=== PATIENT | female | born 1935 | race Caucasian/White ===

== ENCOUNTER 2016-11-01 18:58 | Emergency (ER) | payer OTHER ==
[~2016-11-01] VITALS: Ht 160 cm; Wt 87.0 kg
[~2016-11-01 18:58] MED LIST: ATOR80TA PO; CMD5 PO; FSM70 PO; HYDR25TA4 PO; LISI5TAB3 PO; MECL25TA2 PO; POTA-327 PO; TEMA15CA4 PO; TMXUNK PO; WARF5TAB90 PO
[2016-11-01 19:00] VITALS: TEMP 36.6; Ht 160 cm; Wt 87.0 kg
[2016-11-01] MEDS ORDERED: SIMV40TA2 PO (19:40)
[2016-11-01] MEDS ORDERED: WARF5TAB90 PO ×2 (19:40→19:57)
[2016-11-01] MEDS ORDERED: LISI-789 PO (19:40)
[2016-11-01] MEDS ORDERED: DONE10TA12 PO (19:40)
[2016-11-01] MEDS ORDERED: POTA10CA28 PO (19:40)
[2016-11-01] MEDS ORDERED: HYDR25TA5 PO (19:40)
[2016-11-01] MEDS ORDERED: MECLIZINE HCL 25 MG TAB PO STA (20:07)
[2016-11-01] MEDS ORDERED: SODIUM CHLORIDE 0.9% 500ML 500 ML IV STA (20:07)
[2016-11-01 20:19] VITALS: O2SAT 96
[2016-11-01 20:35] LABS: BASO % 0.6 %; BASO ABS # 0.03 K/uL (0-0.2); COMPLETE YES; EOS % 2.6 %; HEMATOCRIT 46.4 % (37-47); LYMPH ABS # 1.09 K/uL (1.2-3.4); MEAN CORPUSCULAR HEMOGLOBIN 30.7 pg (25-34); MEAN PLATELET VOLUME 9.8 fL (7.4-10.4); MONO % 6.3 %; NEUT % 70.5 %; PLATELET COUNT 206 K/uL (130-400); RED BLOOD COUNT 4.99 M/uL (4.2-5.4); WHITE BLOOD COUNT 5.44 K/uL (4.8-10.8)
--- NOTE | 2016-11-01 21:01 | DIAGNOSTIC IMAGING REPORT ---
CHEST ONE VIEW PORTABLE CLINICAL HISTORY: Pt c/o dizziness mental status change COMPARISON STUDY: No previous studies for comparison. FINDINGS: Moderate cardiomegaly. Mild prominence of the pulmonary vasculature. Mild elevation right hemidiaphragm. No focal infiltrate. Degenerative changes of left and to lesser extent right shoulder. IMPRESSION: Cardia megaly. Mild venous congestion. Electronically signed by: Braden Michele M.D. 11/01/2016 9:00 PM Dictated Date/Time: 11/01/2016 8:59 PM
[2016-11-01 21:03] LABS: URINE APPEARANCE CLEAR (CLEAR); URINE BILIRUBIN NEG (NEG); URINE COLOR YELLOW; URINE NITRITE NEG (NEG); URINE SPECIFIC GRAVITY 1.021 (1.000-1.030); UROBILINOGEN NEG (NEG)
[2016-11-01 21:08] LABS: ALKALINE PHOSPHATASE 77 U/L (45-117); ALT/SGPT 21 U/L (12-78); BLOOD UREA NITROGEN 26 mg/dl (7-18); BUN/CREATININE RATIO 18.5 (10-20); CALCIUM 8.9 mg/dl (8.5-10.1); CARBON DIOXIDE 29 mmol/L (21-32); CHLORIDE 107 mmol/L (98-107); GLUCOSE 86 mg/dl (70-99); SODIUM 144 mmol/L (136-145)
--- NOTE | 2016-11-01 21:09 | DIAGNOSTIC IMAGING REPORT ---
HEAD CT NONCONTRAST CT DOSE: 537.48 mGy.cm HISTORY: Mental status change Pt c/o dizziness TECHNIQUE: Multiaxial CT images of the head were performed without the use of intravenous contrast. Comparison: None. Findings: The paranasal sinuses and mastoid air cells are clear. The calvarium and skull base are intact. The ventricles and sulci are within normal limits. There is no mass, hematoma, midline shift, or acute infarct. Mild age-related chronic small vessel change as well as atrophy. Impression: No acute intracranial abnormality. Age-related change. Electronically signed by: Braden Michele M.D. 11/01/2016 9:07 PM Dictated Date/Time: 11/01/2016 9:06 PM
[2016-11-01 21:20] LABS: MANUAL MICROSCOPIC REQUIRED? NO; REVIEW REQ? NO
[2016-11-01] MEDS ORDERED: MECL1TAB42 PO (21:38)
[2016-11-01 21:57] LABS: INR 2.4 (0.9-1.1); PROTHROMBIN TIME (PATIENT) 26.9 SECONDS (9.0-12.0)
[2016-11-01 22:17] VITALS: BP 132/72; PULSE 93; O2SAT 96
--- NOTE | 2016-11-01 23:12 | EMERGENCY ROOM VISIT NOTE ---
History Report prepared by Biis: Sugar Hoffman Under the Supervision of: Dr. Heath Massey M.D. First contact with patient: 20:01 Chief Complaint: REFERRED BY DOCTOR Stated Complaint: DIZZINESS History of Present Illness The patient is an 81 year old female who presents to the Emergency Room with complaints of persistent dizziness starting a couple days ago. The dizziness was constant at first. It has resolved after laying in emergency room bed. The dizziness worsens when she moves around. She is not dizzy when moving her head side to side. She denies any abdominal pain. Source of History: patient Onset: couple days ago Position: other (global) Quality: other (dizziness) Timing: other (persistent) Modifying Factors (Worsening): movement Modifying Factors (Relieving): rest Associated Symptoms: No abdominal pain Review of Systems See HPI for pertinent positives & negatives. A total of 10 systems reviewed and were otherwise negative. Past Medical & Surgical Medical Problems: (1) Hypertension Surgical Problems: (1) S/P cholecystectomy Family History Diabetes mellitus Gallbladder disease Heart disease Hypertension Social History Smoking Status: Former Smoker Marital Status: Occupation Status: retired Current/Historical Medications Scheduled Donepezil Hydrochloride (Aricept), 10 MG PO HS Hydrochlorothiazide (Hydrochlorothiazide), 25 MG PO DAILY Lisinopril (Zestril), 2.5 MG PO DAILY Potassium Chloride (Micro-K Ext Rel), 10 MEQ PO BID Simvastatin (Zocor), 40 MG PO QPM Warfarin Sodium (Coumadin), 5 MG PO 4XWK Warfarin Sodium (Coumadin), 2.5 MG PO 3XWK Scheduled PRN Meclizine Hcl (Meclizine Hcl), 1 TAB PO TID PRN for Dizziness or Vertigo Allergies Coded Allergies: Aspirin (Verified Allergy, Mild, sick per pt, 03/26/12) Physical Exam Vital Signs Date Time Temp Pulse Resp B/P (MAP) Pulse Ox O2 Delivery O2 Flow Rate FiO2 11/01/16 22:17 93 20 132/72 96 11/01/16 20:53 79 21 121/74 96 Room Air 11/01/16 20:19 96 Room Air 11/01/16 20:19 96 Room Air 11/01/16 19:42 73 21 127/58 96 79 121/74 91 129/76 11/01/16 19:00 36.6 101 140/84 95 Room Air Physical Exam GENERAL: Patient is a healthy-appearing well-nourished HEAD: Normocephalic atraumatic EYES: Ocular movements intact pupils equal and react to light OROPHARYNX mucous membranes are moist no exudates present no erythema or edema present NECK: Supple no nuchal rigidity CHEST: Good equal expansion LUNGS: Clear and equal to auscultation CARDIAC: Normal S1 and S2 ABDOMEN: Soft nontender no guarding BACK: No CVA tenderness EXTREMITIES: No pain upon palpation normal muscle strength in all groups no clubbing cyanosis or edema NEURO: Patient is following commands is answering questions appropriately. Alert and oriented x3 Cranial Nerves 2-12 grossly intact Medical Decision & Procedures ER Provider Diagnostic Interpretation: X-ray results as stated below per interpretation by me and the radiologist. Radiology results as stated below per my review and radiologist interpretation: CHEST ONE VIEW PORTABLE CLINICAL HISTORY: Pt c/o dizziness mental status change COMPARISON STUDY: No previous studies for comparison. FINDINGS: Moderate cardiomegaly. Mild prominence of the pulmonary vasculature. Mild elevation right hemidiaphragm. No focal infiltrate. Degenerative changes of left and to lesser extent right shoulder. IMPRESSION: Cardia megaly. Mild venous congestion. Electronically signed by: Braden Michele M.D. 11/01/2016 9:00 PM Dictated Date/Time: 11/01/2016 8:[address] CT DOSE: 537.48 mGy.cm HISTORY: Mental status change Pt c/o dizziness TECHNIQUE: Multiaxial CT images of the head were performed without the use of intravenous contrast. Comparison: None. Findings: The paranasal sinuses and mastoid air cells are clear. The calvarium and skull base are intact. The ventricles and sulci are within normal limits. There is no mass, hematoma, midline shift, or acute infarct. Mild age-related chronic small vessel change as well as atrophy. Impression: No acute intracranial abnormality. Age-related change. Electronically signed by: Braden Michele M.D. 11/01/2016 9:07 PM Dictated Date/Time: 11/01/2016 9:06 PM Laboratory Results 11/01/16 20:25 Red Blood Count 4.99, Mean Corpuscular Volume 93.0, Mean Corpuscular Hemoglobin 30.7, Mean Corpuscular Hemoglobin Concent 33.0, Mean Platelet Volume 9.8, Neutrophils (%) (Auto) 70.5, Lymphocytes (%) (Auto) 20.0, Monocytes (%) (Auto) 6.3, Eosinophils (%) (Auto) 2.6, Basophils (%) (Auto) 0.6, Neutrophils # (Auto) 3.84, Lymphocytes # (Auto) 1.09, Monocytes # (Auto) 0.34, Eosinophils # (Auto) 0.14, Basophils # (Auto) 0.03 11/01/16 20:25 Test 11/01/16 20:23 11/01/16 20:25 11/01/16 20:49 Bedside Glucose 82 mg/dl (70-90) White Blood Count 5.44 K/uL (4.8-10.8) Red Blood Count 4.99 M/uL (4.2-5.4) Hemoglobin 15.3 g/dL (12.0-16.0) Hematocrit 46.4 % (37-47) Mean Corpuscular Volume 93.0 fL (80-100) Mean Corpuscular Hemoglobin 30.7 pg (25-34) Mean Corpuscular Hemoglobin Concent 33.0 g/dl (32-36) Platelet Count 206 K/uL (130-400) Mean Platelet Volume 9.8 fL (7.4-10.4) Neutrophils (%) (Auto) 70.5 % Lymphocytes (%) (Auto) 20.0 % Monocytes (%) (Auto) 6.3 % Eosinophils (%) (Auto) 2.6 % Basophils (%) (Auto) 0.6 % Neutrophils # (Auto) 3.84 K/uL (1.4-6.5) Lymphocytes # (Auto) 1.09 K/uL (1.2-3.4) Monocytes # (Auto) 0.34 K/uL (0.11-0.59) Eosinophils # (Auto) 0.14 K/uL (0-0.5) Basophils # (Auto) 0.03 K/uL (0-0.2) RDW Standard Deviation 47.0 fL (36.4-46.3) RDW Coefficient of Variation 13.7 % (11.5-14.5) Immature Granulocyte % (Auto) 0.0 % Immature Granulocyte # (Auto) 0.00 K/uL (0.00-0.02) Prothrombin Time 26.9 SECONDS (9.0-12.0) Prothromb Time International Ratio 2.4 (0.9-1.1) Anion Gap 8.0 mmol/L (3-11) Est Creatinine Clear Calc Drug Dose 32.4 ml/min Estimated GFR () 40.5 Estimated GFR (Non- 34.9 BUN/Creatinine Ratio 18.5 (10-20) Calcium Level 8.9 mg/dl (8.5-10.1) Total Bilirubin 0.6 mg/dl (0.2-1) Direct Bilirubin mg/dl (0-0.2) Aspartate Amino Transf (AST/SGOT) U/L (15-37) Alanine Aminotransferase (ALT/SGPT) 21 U/L (12-78) Alkaline Phosphatase 77 U/L (45-117) Total Creatine Kinase U/L (26-192) Creatine Kinase MB 1.3 ng/ml (0.5-3.6) Creatine Kinase MB Ratio (0-3.0) Troponin I < 0.015 ng/ml (0-0.045) Total Protein 7.1 gm/dl (6.4-8.2) Albumin 3.8 gm/dl (3.4-5.0) Thyroid Stimulating Hormone (TSH) 2.010 uIu/ml (0.300-4.500) Urine Color YELLOW Urine Appearance CLEAR (CLEAR) Urine pH 7.0 (4.5-7.5) Urine Specific [place] 1.021 (1.000-1.030) Urine Protein NEG (NEG) Urine Glucose (UA) NEG (NEG) Urine Ketones NEG (NEG) Urine Occult Blood NEG (NEG) Urine Nitrite NEG (NEG) Urine Bilirubin NEG (NEG) Urine Urobilinogen NEG (NEG) Urine Leukocyte Esterase NEG (NEG) Labs reviewed by ED physician. Medications Administered Medications (Trade) Dose Ordered Sig/Camacho Route Start Time Stop Time Status Last Admin Dose Admin Meclizine HCl (Antivert Tab) 25 mg NOW STAT PO 11/01/16 20:07 11/01/16 20:09 DC 11/01/16 20:44 25 MG Sodium Chloride 500 ml @ 999 mls/hr Q31M STAT IV 11/01/16 20:07 11/01/16 20:37 DC 11/01/16 20:45 999 MLS/HR ECG Indication: other (dizziness) Rate (beats per minute): 76 Rhythm: atrial fibrillation Findings: no acute ischemic change, other (QTC 432) Comparison ECG Date: 03-Jun-2007 Change: A fib is new. ED Course 2003: Past medical records reviewed. The patient was evaluated in room C5. A complete history and physical examination was performed. 2007: NSS 500 ml @ 999 mls/hr IV, Meclizine HCl 25 mg PO. 2144: Upon reexamination the patient is resting comfortably. I discussed results and treatment plan with the patient. She verbalizes agreement and understanding. The patient is ready for discharge. Medical Decision Differential diagnosis: Etiologies such as metabolic, infection, hypo/hyperglycemia, electrolyte abnormalities, cardiac sources, intracerebral event, toxicologic, neurologic, as well as others were entertained. Medication Reconciliation: I attest that I have personally reviewed the patient' s current medication list. Blood Pressure Screening: Patient was found to have normal blood pressure on screening and does not require follow up. This is an 81-year-old female who presents emergency department complaining of dizziness. The patient denies having dizziness now. She was given meclizine as well as a normal saline bolus in the emergency department. I do believe she is slightly dehydrated and her blood sugar is also low. Patient reports that she has not eaten today however is feeling much better. She was fed here in the emergency department and I feel is well enough to be discharged home. The patient was ambulated by nursing staff and also felt well she is requesting to be discharged. Patient will follow-up with her primary care physician. Impression Primary Impression: Dehydration Additional Impressions: Dizziness Hypoglycemia Scribe Attestation The scribe's documentation has been prepared under my direction and personally reviewed by me in its entirety. I confirm that the note above accurately reflects all work, treatment, procedures, and medical decision making performed by me. Departure Information Dispostion Home / Self-Care Prescriptions Meclizine Hcl (MECLIZINE HCL) 25 Mg Tab 1 TAB PO TID Y for Dizziness or Vertigo for 10 Days, #30 TAB Prov: Heath Massey MD 11/01/16 Referrals Mina Sanchez M.D. (PCP) Christina Welsh M.D. Forms HOME CARE DOCUMENTATION FORM, IMPORTANT VISIT INFORMATION, WORK / SCHOOL INSTRUCTIONS Patient Instructions ED Dehydration, ED Dizziness [facility] Hypertension Control, My [facility] Additional Instructions Increase fluid intake next 48 [address] Follow up [address] Welsh's office for continued dizziness You have been examined and treated today on an emergency basis only. This is not a substitute for, or an effort to provide, complete comprehensive medical care. It is impossible to recognize and treat all injuries or illnesses in a single emergency department visit. It is therefore important that you follow up closely with Dr Sanchez. Call as soon as possible for an appointment. Thank you for your time and consideration. I look forward to speaking with you again soon. Please don't hesitate to call us if you have any questions. Problem Qualifiers
== END 2016-11-01 22:19 | disposition home or self-care (01) ==
LOC: C.EDB 18:59 → C.EDC 22:19
DX: E86.0 Dehydration (principal); R42 Dizziness and giddiness; E16.2 Hypoglycemia, unspecified; I48.91 Unspecified atrial fibrillation; I10 Essential (primary) hypertension; Z79.01 Long term (current) use of anticoagulants; Z79.899 Other long term (current) drug therapy; Z82.49 Family history of ischemic heart disease and other diseases of the circulatory system; Z83.3 Family history of diabetes mellitus; Z83.79 Family history of other diseases of the digestive system; F17.200 Nicotine dependence, unspecified, uncomplicated

== ENCOUNTER 2023-03-16 21:51 | Inpatient (IN) ==
--- NOTE | 2023-03-16 22:14 | Emergency Department Note ---
Impression & Plan Acute UTI (urinary tract infection), Generalized weakness, Acute confusion ED Provider Note HISTORY OF PRESENT ILLNESS: Patient is an 86-year-old female presenting with reported worsening confusion. History was obtained via EMS, as patient is very demented. EMS was called out for the patient's worsening confusion. She reportedly has baseline dementia and family had stated to EMS that the patient is at her baseline mental status, but has been having intermittent episodes of increasing agitation. She reportedly recently treated for a urinary tract infection.. On arrival to the ER, the patient has no complaints. She is unsure why she is here. Family provides history once they arrived at bedside. Reports that the patient has had generalized weakness in the last 24 hours. She has been slightly more confused today. Reports that she is normally ambulatory with some assist, but today has been unable to get up secondary to lower extremity weakness. ROS: as above PHYSICAL EXAM: Constitutional: Patient appears in no acute distress. HENT: Head: Normocephalic and atraumatic. Eyes: EOMI, PERRL Mouth/Throat: Mucous membranes moist. Neck: Trachea midline. Neck supple. Cardiovascular: RRR, No murmurs, rubs or gallops. Intact distal pulses. Pulmonary/Chest: No respiratory distress. Breath sounds clear and equal bilaterally. No wheezes or rales. Patient has a very hard and nontender left breast. The nipple is retracted. Abdominal: Abdomen soft, no tenderness, rebound or guarding. Musculoskeletal: No edema, tenderness or deformity noted. Skin: Warm and dry. No rash, erythema, pallor or cyanosis Psychiatric: Appropriate mood and affect for situation. Neurological: Alert but only oriented to self and place. CN II-XII grossly intact, moving all extremities equally and fully. MDM: - Vitals signs stable. - History obtained via EMS, given patient's dementia. Patient presents with worsening confusion and weakness. Patient reportedly has been more confused from her baseline today. She recently was treated for a urinary tract infecti on. Family reports that the patient has had lower extremity weakness today has been unable to get up and get around like her normal self. No reported fevers. - Chronic conditions affecting care: dementia - Differential diagnoses include, but are not limited to: UTI; pneumonia; electrolyte abnormality - Order placed for continuous cardiac monitoring. At this time, monitor showed rate of 75 bpm with normal sinus rhythm, per my interpretation. - External medical records reviewed. - Laboratory workup interpreted by myself showed slight leukopenia (WBC 4.05); hyponatremia (Na 132); elevated creatinine (Cr 1.3) - UA obtained via straight cath positive for infection - Biofire negative - Patient given 2g IV rocephin. - Discussion was had with protective services social worker about patient's case and need for ad mission - Hospitalist consulted for admission - [facility] ASSESSMENT AND PLAN: Diagnosis: Generalized weakness; urinary tract infection; confusion Plan: Admit Past Med/Surg History Social History Smoking Status: Unknown if ever smoked Preferred Language: Luxembourgish Feels Safe at Home: Yes Allergies Allergies Allergy/AdvReac Type Severity Reaction Status Date / Time acetaminophen AdvReac Unknown Verified 03/17/23 01:24 aspirin AdvReac Unknown Verified 03/17/23 01:24 Home Meds Home Medications Medication Instructions Recorded Confirmed donepezil 10 mg tablet 10 mg PO HS 03/17/23 03/17/23 lisinopril 2.5 mg tablet 2.5 mg PO DAILY 03/17/23 03/17/23 potassium chloride 10 mEq 10 meq PO BID 03/17/23 03/17/23 capsule,extended release simvastatin 40 mg tablet 40 mg PO HS 03/17/23 03/17/23 warfarin 2.5 mg tablet 2.5 mg PO DAILY 03/17/23 03/17/23 Results & Data (ED) Vital Signs Vital Signs - 24 hr 03/16/23 22:15 03/16/23 22:14 03/16/23 23:00 Temperature 36.4 C L Temperature Source Oral Pulse Rate 80 85 78 Respiratory Rate 20 32 H Blood Pressure 128/86 112/64 Blood Pressure Mean 100 87 Blood Pressure Position Lying Pulse Oximetry 94 93 Oxygen Delivery Method Room Air Room Air Sepsis Recent Fever Within 48 Hours No Sepsis New/Unexplained Change in Mental Status N/A Sepsis Action Taken by Nursing No Action Required 03/16/23 23:31 03/17/23 00:30 Temperature Temperature Source Pulse Rate 84 74 Respiratory Rate 31 H 38 H Blood Pressure 133/81 108/77 Blood Pressure Mean 103 82 Blood Pressure Position Pulse Oximetry 94 95 Oxygen Delivery Method Room Air Room Air Sepsis Recent Fever Within 48 Hours Sepsis New/Unexplained Change in Mental Status Sepsis Action Taken by Nursing Laboratory Data 03/16/23 22:25 03/16/23 22:25 Lab Results 03/16/23 03/16/23 03/16/23 Range/Units 22:25 22:25 23:15 WBC 4.05 L (4.8-10.8) K/ul RBC 4.63 (4.20-5.40) M/uL Hgb 13.9 (12.0-16.0) g/dl Hct 42.3 (37.0-47.0) % MCV 91.4 (80.0-100.0) fL MCH 30.0 (25.0-34.0) pg MCHC 32.9 (32.0-36.0) g/dL RDW Std Deviation 47.4 H (36.4-46.3) fL RDW Coeff of Alex 14.1 (11.5-14.5) % Plt Count 167 (130-400) K/uL MPV 9.8 (9.4-12.4) fL Immature Gran % (Auto) 0.0 % Neut % (Auto) 85.2 % Lymph % (Auto) 8.1 % [place] % (Auto) 3.5 % Eos % (Auto) 3.0 % Baso % (Auto) 0.2 % Neut # (Auto) 3.45 (1.40-6.50) K/uL Lymph # (Auto) 0.33 L (1.20-3.40) K/uL [place] # (Auto) 0.14 (0.11-0.59) K/uL Eos # (Auto) 0.12 (0.00-0.50) K/uL Baso # (Auto) 0.01 (0.00-0.20) K/uL Immature Gran # (Auto) 0.00 L (0.01-0.20) K/uL Sodium 132 L (136-145) mmol/L Potassium 4.6 (3.5-5.1) mmol/L Chloride 105 (98-107) mmol/L Carbon Dioxide 22 (21-32) mmol/L Anion Gap 5 (3-11) BUN 24 H (6-23) mg/dl Creatinine 1.30 H (0.6-1.2) mg/dl Est Cr Clr Drug Dosing Not Reportable Est GFR ( Amer) 42.4 ml/min Est GFR (Non-Af Amer) 36.6 ml/min BUN/Creatinine Ratio 18.5 (10-20) Glucose 108 H (70-99(Fasting)) mg/dl Calcium 8.8 (8.6-10.3) mg/dl Total Bilirubin 0.8 (0.2-1.0) mg/dl AST 16 (13-39) U/L ALT 5 L (7-52) U/L Alkaline Phosphatase 63 (34-104) U/L Total Protein 6.3 (6.0-8.3) gm/dl Albumin 3.7 (3.4-5.0) gm/dl Globulin 2.6 (2.5-4.0) gm/dl Albumin/Globulin Ratio 1.4 (0.9-2) Urine Color Urine Appearance (Clear) Urine pH (4.5-7.5) Ur Specific [place] (1.000-1.030) Urine Protein (Negative) Urine Glucose (UA) (Negative) Urine Ketones (Negative) Urine Blood (Negative) Urine Nitrite (Negative) Urine Bilirubin (Negative) Urine Urobilinogen (Negative) Ur Leukocyte Esterase (Negative) Urine WBC (Auto) (0-5) /hpf Urine RBC (Auto) (0-4) /hpf U Hyaline Cast (Auto) (0-5) /lpf U Epithel Cells (Auto) (0-5) /lpf Urine Bacteria (Auto) (Negative) Ur Renal Epithelial Cell (0-5) /lpf Adenovirus (PCR) Not Detected (NotDetected) B. pertussis DNA (PCR) Not Detected (NotDetected) B.parapertussis DNA PCR Not Detected (NotDetected) C. pneumoniae DNA (PCR) Not Detected (NotDetected) Coronavirus OC43 (PCR) Not Detected (NotDetected) Coronavirus HKU1 (PCR) Not Detected (NotDetected) Coronavirus 229E (PCR) Not Detected (NotDetected) SARS-CoV-2 (PCR) Not Detected (NotDetected) Coronavirus NL63 (PCR) Not Detected (NotDetected) Human Metapneumovir PCR Not Detected (NotDetected) Influenza Type A (PCR) Not Detected (NotDetected) Influenza Type B (PCR) Not Detected (NotDetected) M. pneumoniae (PCR) Not Detected (NotDetected) Parainfluenza 1 (PCR) Not Detected (NotDetected) Parainfluenza 2 (PCR) Not Detected (NotDetected) Parainfluenza 3 (PCR) Not Detected (NotDetected) Parainfluenza 4 (PCR) Not Detected (NotDetected) RSV (PCR) Not Detected (NotDetected) Entero/Rhino (PCR) Not Detected (NotDetected) 03/17/23 Range/Units 00:08 WBC (4.8-10.8) K/ul RBC (4.20-5.40) M/uL Hgb (12.0-16.0) g/dl Hct (37.0-47.0) % MCV (80.0-100.0) fL MCH (25.0-34.0) pg MCHC (32.0-36.0) g/dL RDW Std Deviation (36.4-46.3) fL RDW Coeff of Alex (11.5-14.5) % Plt Count (130-400) K/uL MPV (9.4-12.4) fL Immature Gran % (Auto) % Neut % (Auto) % Lymph % (Auto) % [place] % (Auto) % Eos % (Auto) % Baso % (Auto) % Neut # (Auto) (1.40-6.50) K/uL Lymph # (Auto) (1.20-3.40) K/uL [place] # (Auto) (0.11-0.59) K/uL Eos # (Auto) (0.00-0.50) K/uL Baso # (Auto) (0.00-0.20) K/uL Immature Gran # (Auto) (0.01-0.20) K/uL Sodium (136-145) mmol/L Potassium (3.5-5.1) mmol/L Chloride (98-107) mmol/L Carbon Dioxide (21-32) mmol/L Anion Gap (3-11) BUN (6-23) mg/dl Creatinine (0.6-1.2) mg/dl Est Cr Clr Drug Dosing Est GFR ( Amer) ml/min Est GFR (Non-Af Amer) ml/min BUN/Creatinine Ratio (10-20) Glucose (70-99(Fasting)) mg/dl Calcium (8.6-10.3) mg/dl Total Bilirubin (0.2-1.0) mg/dl AST (13-39) U/L ALT (7-52) U/L Alkaline Phosphatase (34-104) U/L Total Protein (6.0-8.3) gm/dl Albumin (3.4-5.0) gm/dl Globulin (2.5-4.0) gm/dl Albumin/Globulin Ratio (0.9-2) Urine Color Dark Yellow Urine Appearance Cloudy A (Clear) Urine pH 5.0 (4.5-7.5) Ur Specific [place] 1.025 (1.000-1.030) Urine Protein 3+ H (Negative) Urine Glucose (UA) Negative (Negative) Urine Ketones Trace H (Negative) Urine Blood Trace H (Negative) Urine Nitrite Negative (Negative) Urine Bilirubin 1+ H (Negative) Urine Urobilinogen Negative (Negative) Ur Leukocyte Esterase 1+ H (Negative) Urine WBC (Auto) >30 H (0-5) /hpf Urine RBC (Auto) 0-4 (0-4) /hpf U Hyaline Cast (Auto) >30 H (0-5) /lpf U Epithel Cells (Auto) >30 H (0-5) /lpf Urine Bacteria (Auto) 1+ H (Negative) Ur Renal Epithelial Cell 5-10 H (0-5) /lpf Adenovirus (PCR) (NotDetected) B. pertussis DNA (PCR) (NotDetected) B.parapertussis DNA PCR (NotDetected) C. pneumoniae DNA (PCR) (NotDetected) Coronavirus OC43 (PCR) (NotDetected) Coronavirus HKU1 (PCR) (NotDetected) Coronavirus 229E (PCR) (NotDetected) SARS-CoV-2 (PCR) (NotDetected) Coronavirus NL63 (PCR) (NotDetected) Human Metapneumovir PCR (NotDetected) Influenza Type A (PCR) (NotDetected) Influenza Type B (PCR) (NotDetected) M. pneumoniae (PCR) (NotDetected) Parainfluenza 1 (PCR) (NotDetected) Parainfluenza 2 (PCR) (NotDetected) Parainfluenza 3 (PCR) (NotDetected) Parainfluenza 4 (PCR) (NotDetected) RSV (PCR) (NotDetected) Entero/Rhino (PCR) (NotDetected) Administered Medications Discontinued Medications Ceftriaxone Sodium (Rocephin) 2,000 mg in 50 mls @ 100 mls/hr IV NOW STA Stop: 03/17/23 01:27 Last Admin: 03/17/23 01:10 Dose: 100 mls/hr Documented By: DML Discharge Plan Visit Data Chief Complaint: Urinary Symptoms Stated Complaint: UTI ED Provider: Maureen Stanford Discharge Problem: Acute UTI (urinary tract infection), Generalized weakness, Acute confusion Forms Stand Alone Forms: [facility] Prescriptions Prescriptions: No Action potassium chloride 10 mEq Capsule, Extended Release 10 meq PO BID donepezil 10 mg Tablet 10 mg PO HS warfarin 2.5 mg Tablet 2.5 mg PO DAILY simvastatin 40 mg Tablet 40 mg PO HS lisinopril 2.5 mg Tablet 2.5 mg PO DAILY Referrals Referrals: PCP,NO [Primary Care Provider] -
[2023-03-16 22:48] LABS: Basophils # (auto) 0.01 K/uL (0.00-0.20); Basophils % (auto) 0.2 %; Eosinophils # (auto) 0.12 K/uL (0.00-0.50); Hematocrit (blood only) 42.3 % (37.0-47.0); Hemoglobin 13.9 g/dl (12.0-16.0); Lymphocytes # (auto) 0.33 K/uL (1.20-3.40); Lymphocytes % (auto) 8.1 %; Mean Corpuscular Hgb Conc 32.9 g/dL (32.0-36.0); Mean Corpuscular Volume 91.4 fL (80.0-100.0); Mean Platelet Volume 9.8 fL (9.4-12.4); Monocytes # (auto) 0.14 K/uL (0.11-0.59); Monocytes % (auto) 3.5 %; Neutrophils # (auto) 3.45 K/uL (1.40-6.50); Neutrophils % (auto) 85.2 %; Platelet Count 167 K/uL (130-400); RDW Coefficient of Variation 14.1 % (11.5-14.5); RDW Standard Deviation 47.4 fL (36.4-46.3); Red Blood Count 4.63 M/uL (4.20-5.40); White Blood Count 4.05 K/ul (4.8-10.8)
[2023-03-16 23:00] LABS: Alanine Aminotransferase 5 U/L (7-52); Albumin Globulin Ratio 1.4 (0.9-2); Albumin Level 3.7 gm/dl (3.4-5.0); Alkaline Phosphatase 63 U/L (34-104); Anion Gap 5 (3-11); Aspartate Aminotransferase 16 U/L (13-39); BUN Creatinine Ratio 18.5 (10-20); Bilirubin,Total 0.8 mg/dl (0.2-1.0); Blood Urea Nitrogen 24 mg/dl (6-23); Calcium 8.8 mg/dl (8.6-10.3); Carbon Dioxide 22 mmol/L (21-32); Chloride 105 mmol/L (98-107); Est GFR (African American) 42.4 ml/min; Est GFR (Non-African American) 36.6 ml/min; Globulin 2.6 gm/dl (2.5-4.0); Glucose 108 mg/dl (70-99(Fasting)); Potassium 4.6 mmol/L (3.5-5.1); Sodium 132 mmol/L (136-145); Total Protein 6.3 gm/dl (6.0-8.3)
[2023-03-17 00:13] LABS: Adenovirus PCR Not Detected (NotDetected); Bordetella parapertussis PCR Not Detected (NotDetected); Bordetella pertussis PCR Not Detected (NotDetected); Chlamydia pneumoniae PCR Not Detected (NotDetected); Coronavirus 229E PCR Not Detected (NotDetected); Coronavirus CoV-2 (COVID19)PCR Not Detected (NotDetected); Coronavirus HKU1 PCR Not Detected (NotDetected); Coronavirus NL63 PCR Not Detected (NotDetected); Coronavirus OC43PCR Not Detected (NotDetected); Human Metapneumovirus PCR Not Detected (NotDetected); Influenza A PCR Not Detected (NotDetected); Influenza B PCR Not Detected (NotDetected); Mycoplasma pneumoniae PCR Not Detected (NotDetected); Parainfluenza Virus 1 PCR Not Detected (NotDetected); Parainfluenza Virus 2 PCR Not Detected (NotDetected); Parainfluenza Virus 3 PCR Not Detected (NotDetected); Parainfluenza Virus 4 PCR Not Detected (NotDetected); Respiratory Syncytial VirusPCR Not Detected (NotDetected); Rhinovirus/Enterovirus PCR Not Detected (NotDetected)
[2023-03-17 00:33] LABS: Appearance Urine Cloudy (Clear); Blood Urine Trace (Negative); Color Urine Dark Yellow; Epithelial Cell Urine Auto >30 /lpf (0-5); Glucose Urine UA Negative (Negative); Ketones Urine Trace (Negative); Leukocyte Esterase Urine 1+ (Negative); Nitrite Urine Negative (Negative); Protein Urine 3+ (Negative); RBC Urine Automated 0-4 /hpf (0-4); Specific Gravity Urine 1.025 (1.000-1.030); Urobilinogen Urine Negative (Negative); WBC Urine Automated >30 /hpf (0-5)
[2023-03-17 00:34] LABS: Bilirubin Urine 1+ (Negative); Cast Urine Automated >30 /lpf (0-5)
[2023-03-17 00:45] LABS: Bacteria Urine Automated 1+ (Negative)
[2023-03-17] MEDS ORDERED: cefTRIAXone SODIUM 2,000 MG/50 ML BAG IV STA (00:58)
[2023-03-17] MEDS ORDERED: SODIUM CHLORIDE 0.9% 1,000 ML IV STA (01:46)
--- NOTE | 2023-03-17 02:18 | History & Physical Report ---
Date of Service March 17, 2023 Assessment & Plan (1) Encephalopathy: Plan: Delirium on dementia Multifactorial: Intracranial hemorrhage, hx Coumadin coagulopathy, hx AF Complicated UTI, failed outpatient treatment, no sepsis for now hypertension, secondary to illness hyperlipidemia on statin Rx CRI, creatinine at baseline prediabetes, hemoglobin A1c of 5.04 May 2022 left breast cancer status post surgery, radiation, tamoxifen Rx, in remission past tobacco abuse PCU Stop Coumadin Vitamin K, Kcentra now Decadron 1 dose for vasogenic edema Repeat CT head after 12 hours. Neurology consult Re: Intracranial hemorrhage (Patient's sons unsure about wanting to pursue neurosurgical intervention for patient if warranted.) Urine CS, Ceftriaxone DVT prophylaxis. SCDs Re: ICH DNR as per patient prior directives. Patient's son requesting updates from providers. Mr. Gil Ludwig, contact #[phone]. Case discussed with Dr. Meza of [facility] Neurology. He concurs with the plan but would not recommend additional steroid Rx for vasogenic edema after initial dose given at the ER. Total critical care time was 55 minutes. Text document was generated using [employer] voice recognition software. It may contain grammatical or spelling errors. Kindly contact undersigned for clarification of any documentation item in question. History of Present Illness Chief Complaint: I do not know Worsening confusion as per family Primary Care Provider: Pieter Kumar MD Patient has prior [facility] MR#[id number]. History obtained from patient, family, and records. History limited from patient secondary to dementia. Medical history significant for A-fib on Coumadin, hypertension, hyperlipidemia, CRI (baseline creatinine 1.5), prediabetes, left breast cancer status post surgery, radiation, tamoxifen Rx, dementia, past tobacco abuse. Last admission 2003 under Orthopedics service for bilateral total knee arthroplasties. Patient seen at PCPs office last week for bladder troubles. Increased disorientation at home. Having trouble seeing as per documentation. UA showed WBC esterase. Patient started on Macrodantin. Outpatient urine CS eventually without growth. Patient brought to ER for worsening agitation. Patient also complaining of abdominal pain as per son. Patient does not know why she is in the hospital. Denies headache, chest pain, SOB, abdominal pain, hematuria complaints. No recollection of recent trauma except for patient sliding from her bed last month as per son. IV ceftriaxone administered at the ER. Medical History as above Surgical History : Knee surgery, cataract surgery, dental surgery, cholecy stectomy, shoulder surgery, partial mastectomy left Family History : COPD, DM, dementia Personal/Social history : Past tobacco abuse, occasional EtOH intake, lives with son, retired from [employer] work Allergies Allergy/AdvReac Type Severity Reaction Status Date / Time aspirin AdvReac Unknown Verified 03/17/23 01:24 Home Medications Medication Instructions Recorded Confirmed Type donepezil 10 mg tablet 10 mg PO HS 03/17/23 03/17/23 History lisinopril 2.5 mg tablet 2.5 mg PO DAILY 03/17/23 03/17/23 History potassium chloride 10 mEq 10 meq PO BID 03/17/23 03/17/23 History capsule,extended release simvastatin 40 mg tablet 40 mg PO HS 03/17/23 03/17/23 History warfarin 2.5 mg tablet 2.5 mg PO DAILY 03/17/23 03/17/23 History Past Med/Surg History Social History Smoking Status: Never smoker Hx Alcohol Use: No Hx Substance Use: No Preferred Language: Chinese Communication Ability: Effective Public Health Teacher Required: No Beliefs That Will Affect Care: None Current Living Situation: Family Current Living Situation Comment: Lives with son Other Information That Helps Us Care for You: No Feels Safe at Home: Yes Safety Concerns: Feels Safe At This Time Assistive Devices: Denture - Upper and Denture - Lower Review of Systems Review of Systems: Could not be reliably obtained secondary to dementia Physical Exam Physical Exam: GENERAL: Demented, irate, episodic lethargy, obese, no respiratory distress SKIN: Normal color, warm HEENT: [place] palpebral conjunctivae, no ptosis, dry buccal mucosa NECK : Supple, short neck, no tenderness CHEST : CTA, no tenderness HEART : Irregular, no obvious murmurs ABDOMEN: Some distention, nontender EXTREMITIES : Minimal LE swelling, no LE tenderness, no other conspicuous deformities noted NEUROLOGIC : Demented, no facial asymmetry, gait and stance not assessed Results & Data Results & Data Vital Signs (Past 12 Hours) Vital Signs Temp Pulse Resp BP Pulse Ox O2 Del Method 03/17/23 01:31 87 28 H 171/139 H 93 Room Air 03/17/23 01:11 83 34 H 159/73 H 93 Room Air 03/17/23 00:30 74 38 H 108/77 95 Room Air 03/16/23 23:31 84 31 H 133/81 94 Room Air 03/16/23 23:00 78 32 H 112/64 93 Room Air 03/16/23 22:14 85 03/16/23 22:15 36.4 C L 80 20 128/86 94 Room Air Laboratory Results Laboratory Results WBC 4.05 K/ul (4.8-10.8) L 03/16/23 22:25 RBC 4.63 M/uL (4.20-5.40) 03/16/23 22:25 Hgb 13.9 g/dl (12.0-16.0) 03/16/23 22:25 Hct 42.3 % (37.0-47.0) 03/16/23 22:25 MCV 91.4 fL (80.0-100.0) 03/16/23 22:25 MCH 30.0 pg (25.0-34.0) 03/16/23 22:25 MCHC 32.9 g/dL (32.0-36.0) 03/16/23 22:25 RDW Std Deviation 47.4 fL (36.4-46.3) H 03/16/23 22:25 RDW Coeff of Alex 14.1 % (11.5-14.5) 03/16/23 22:25 Plt Count 167 K/uL (130-400) 03/16/23 22:25 MPV 9.8 fL (9.4-12.4) 03/16/23 22:25 Immature Gran % (Auto) 0.0 % 03/16/23 22:25 Neut % (Auto) 85.2 % 03/16/23 22:25 Lymph % (Auto) 8.1 % 03/16/23 22:25 [place] % (Auto) 3.5 % 03/16/23 22:25 Eos % (Auto) 3.0 % 03/16/23 22:25 Baso % (Auto) 0.2 % 03/16/23 22:25 Neut # (Auto) 3.45 K/uL (1.40-6.50) 03/16/23 22:25 Lymph # (Auto) 0.33 K/uL (1.20-3.40) L 03/16/23 22:25 [place] # (Auto) 0.14 K/uL (0.11-0.59) 03/16/23 22:25 Eos # (Auto) 0.12 K/uL (0.00-0.50) 03/16/23 22:25 Baso # (Auto) 0.01 K/uL (0.00-0.20) 03/16/23 22:25 Immature Gran # (Auto) 0.00 K/uL (0.01-0.20) L 03/16/23 22:25 PT Cancelled 03/16/23 22:25 INR Cancelled 03/16/23 22:25 Sodium 132 mmol/L (136-145) L 03/16/23 22:25 Potassium 4.6 mmol/L (3.5-5.1) 03/16/23 22:25 Chloride 105 mmol/L (98-107) 03/16/23 22:25 Carbon Dioxide 22 mmol/L (21-32) 03/16/23 22:25 Anion Gap 5 (3-11) 03/16/23 22:25 BUN 24 mg/dl (6-23) H 03/16/23 22:25 Creatinine 1.30 mg/dl (0.6-1.2) H 03/16/23 22:25 Est Cr Clr Drug Dosing Not Reportable 03/16/23 22:25 Est GFR ( Amer) 42.4 ml/min 03/16/23 22:25 Est GFR (Non-Af Amer) 36.6 ml/min 03/16/23 22:25 BUN/Creatinine Ratio 18.5 (10-20) 03/16/23 22: Glucose 108 mg/dl (70-99(Fasting)) H 03/16/23 22:25 Calcium 8.8 mg/dl (8.6-10.3) 03/16/23 22:25 Magnesium Cancelled 03/16/23 22:25 Total Bilirubin 0.8 mg/dl (0.2-1.0) 03/16/23 22:25 AST 16 U/L (13-39) 03/16/23 22:25 ALT 5 U/L (7-52) L 03/16/23 22:25 Alkaline Phosphatase 63 U/L (34-104) 03/16/23 22:25 Total Protein 6.3 gm/dl (6.0-8.3) 03/16/23 22:25 Albumin 3.7 gm/dl (3.4-5.0) 03/16/23 22:25 Globulin 2.6 gm/dl (2.5-4.0) 03/16/23 22:25 Albumin/Globulin Ratio 1.4 (0.9-2) 03/16/23 22:25 TSH Cancelled 03/16/23 22:25 Urine Color Dark Yellow 03/17/23 00:08 Urine Appearance Cloudy (Clear) A 03/17/23 00:08 Urine pH 5.0 (4.5-7.5) 03/17/23 00:08 Ur Specific [place] 1.025 (1.000-1.030) 03/17/23 00:08 Urine Protein 3+ (Negative) H 03/17/23 00:08 Urine Glucose (UA) Negative (Negative) 03/17/23 00:08 Urine Ketones Trace (Negative) H 03/17/23 00:08 Urine Blood Trace (Negative) H 03/17/23 00:08 Urine Nitrite Negative (Negative) 03/17/23 00:08 Urine Bilirubin 1+ (Negative) H 03/17/23 00:08 Urine Urobilinogen Negative (Negative) 03/17/23 00:08 Ur Leukocyte Esterase 1+ (Negative) H 03/17/23 00:08 Urine WBC (Auto) >30 /hpf (0-5) H 03/17/23 00:08 Urine RBC (Auto) 0-4 /hpf (0-4) 03/17/23 00:08 U Hyaline Cast (Auto) >30 /lpf (0-5) H 03/17/23 00:08 U Epithel Cells (Auto) >30 /lpf (0-5) H 03/17/23 00:08 Urine Bacteria (Auto) 1+ (Negative) H 03/17/23 00:08 Ur Renal Epithelial Cell 5-10 /lpf (0-5) H 03/17/23 00:08 Adenovirus (PCR) Not Detected (NotDetected) 03/16/23 23:15 B. pertussis DNA (PCR) Not Detected (NotDetected) 03/16/23 23:15 B.parapertussis DNA PCR Not Detected (NotDetected) 03/16/23 23:15 C. pneumoniae DNA (PCR) Not Detected (NotDetected) 03/16/23 23:15 Coronavirus OC43 (PCR) Not Detected (NotDetected) 03/16/23 23:15 Coronavirus HKU1 (PCR) Not Detected (NotDetected) 03/16/23 23:15 Coronavirus 229E (PCR) Not Detected (NotDetected) 03/16/23 23:15 SARS-CoV-2 (PCR) Not Detected (NotDetected) 03/16/23 23:15 Coronavirus NL63 (PCR) Not Detected (NotDetected) 03/16/23 23:15 Human Metapneumovir PCR Not Detected (NotDetected) 03/16/23 23:15 Influenza Type A (PCR) Not Detected (NotDetected) 03/16/23 23:15 Influenza Type B (PCR) Not Detected (NotDetected) 03/16/23 23:15 M. pneumoniae (PCR) Not Detected (NotDetected) 03/16/23 23:15 Parainfluenza 1 (PCR) Not Detected (NotDetected) 03/16/23 23:15 Parainfluenza 2 (PCR) Not Detected (NotDetected) 03/16/23 23:15 Parainfluenza 3 (PCR) Not Detected (NotDetected) 03/16/23 23:15 Parainfluenza 4 (PCR) Not Detected (NotDetected) 03/16/23 23:15 RSV (PCR) Not Detected (NotDetected) 03/16/23 23:15 Entero/Rhino (PCR) Not Detected (NotDetected) 03/16/23 23:15 CT head: 3.3 x 1.6 x 3.2 cm (volume 8.5 ml) parenchymal hemorrhage within the left occipitoparietal lobe with mild surrounding vasogenic edema. CT abdomen pelvis: No acute abdominal or pelvic process. 2.1 cm low-density lesion in the mid left kidney unable to be further characterized on this noncontrast exam. Diagnostic Findings Chest x-ray as per my interpretation: Borderline cardiomegaly, atelectasis, elevated right hemidiaphragm
[2023-03-17] MEDS ORDERED: ACETAMINOPHEN 325 MG TAB PO PRN (02:23)
[2023-03-17] MEDS ORDERED: PROMETHAZINE HCL 6.25 MG in SODIUM CHLORIDE 0.9% 50 ML IV PRN (02:23)
[2023-03-17 02:25] LABS: Magnesium 1.8 mg/dl (1.7-2.4)
[2023-03-17 02:42] LABS: Thyroid Stimulating Hormone 2.049 uIu/ml (0.300-4.500)
--- NOTE | 2023-03-17 03:57 | CT Scan Report ---
Exam(s): CT HEAD Without Contrast EXAM: CT Head Without Intravenous Contrast CLINICAL HISTORY: Reason for exam: ams. TECHNIQUE: Axial computed tomography images of the head/brain without intravenous contrast. CTDI is 37.51 mGy and DLP is 546.36 mGy-cm. Automated exposure control was utilized for the study. A dose lowering technique was utilized adhering to the principles of ALARA. COMPARISON: No relevant prior studies available. FINDINGS: Brain: 3.3 x 1.6 x 3.2 cm (volume 8.5 ml) parenchymal hemorrhage within the left occipitoparietal lobe with mild surrounding vasogenic edema. No significant white matter disease. Ventricles: Unremarkable. No ventriculomegaly. Bones/joints: Unremarkable. No acute fracture. Soft tissues: Unremarkable. Sinuses: Unremarkable as visualized. No acute sinusitis. Mastoid air cells: Unremarkable as visualized. No mastoid effusion. IMPRESSION: 3.3 x 1.6 x 3.2 cm (volume 8.5 ml) parenchymal hemorrhage within the left occipitoparietal lobe with mild surrounding vasogenic edema. Communications: Call Doctor Intracranial Hemorrhage Electronically signed by: Casey Sawyer M.D. 03/17/23 03:56 AM
--- NOTE | 2023-03-17 04:05 | CT Scan Report ---
Exam(s): CT ABDOMEN + PELVIS Without Contrast EXAM: CT Abdomen and Pelvis Without Intravenous Contrast CLINICAL HISTORY: Reason for exam: abd pain, uti. TECHNIQUE: Axial computed tomography images of the abdomen and pelvis without intravenous contrast. CTDI is 33.06 mGy and DLP is 1547.07 mGy-cm. Automated exposure control was utilized for the study. A dose lowering technique was utilized adhering to the principles of ALARA. COMPARISON: No relevant prior studies available. FINDINGS: Lung bases: Unremarkable. No mass. No consolidation. ABDOMEN: Liver: Unremarkable. Gallbladder and bile ducts: Gallbladder has been removed. No ductal dilation. Pancreas: Unremarkable. No ductal dilation. Spleen: Unremarkable. No splenomegaly. Adrenals: Unremarkable. No mass. Kidneys and ureters: 2.1 cm low-density lesion in the mid left kidney unable to be further characterized on this noncontrast exam. No obstructing stones. Stomach and bowel: Moderate sigmoid diverticulosis without evidence of diverticulitis. No obstruction. PELVIS: Appendix: No findings to suggest acute appendicitis. Bladder: Unremarkable. No stones. Reproductive: Unremarkable as visualized. ABDOMEN and PELVIS: Intraperitoneal space: Unremarkable. No free air. No significant fluid collection. Bones/joints: No acute fracture. No dislocation. Soft tissues: Unremarkable. Vasculature: Unremarkable. No abdominal aortic aneurysm. Lymph nodes: Unremarkable. No enlarged lymph nodes. IMPRESSION: No acute abdominal or pelvic process. 2.1 cm low-density lesion in the mid left kidney unable to be further characterized on this noncontrast exam. Electronically signed by: Casey Sawyer M.D. 03/17/23 04:04 AM
[2023-03-17] MEDS ORDERED: dexAMETHasone**PF** 10 MG/ML VIAL IV STA (04:31)
[2023-03-17] MEDS ORDERED: PHYTONADIONE 10 MG in DEXTROSE 5% 50 ML IV STA (04:32)
[2023-03-17 05:17] LABS: Basophils # (auto) 0.01 K/uL (0.00-0.20); Basophils % (auto) 0.3 %; Eosinophils # (auto) 0.14 K/uL (0.00-0.50); Eosinophils % (auto) 3.6 %; Hematocrit (blood only) 40.3 % (37.0-47.0); Hemoglobin 13.5 g/dl (12.0-16.0); Lymphocytes # (auto) 0.42 K/uL (1.20-3.40); Lymphocytes % (auto) 10.8 %; Mean Corpuscular Hemoglobin 30.1 pg (25.0-34.0); Mean Corpuscular Hgb Conc 33.5 g/dL (32.0-36.0); Mean Corpuscular Volume 89.8 fL (80.0-100.0); Monocytes % (auto) 5.2 %; Neutrophils # (auto) 3.11 K/uL (1.40-6.50); Neutrophils % (auto) 80.1 %; Platelet Count 148 K/uL (130-400); RDW Coefficient of Variation 14.1 % (11.5-14.5); RDW Standard Deviation 46.4 fL (36.4-46.3); Red Blood Count 4.49 M/uL (4.20-5.40); White Blood Count 3.88 K/ul (4.8-10.8)
[2023-03-17 05:22] LABS: Anion Gap 7 (3-11); BUN Creatinine Ratio 19.3 (10-20); Blood Urea Nitrogen 23 mg/dl (6-23); Calcium 8.7 mg/dl (8.6-10.3); Carbon Dioxide 24 mmol/L (21-32); Chloride 105 mmol/L (98-107); Est GFR (African American) 47.2 ml/min; Est GFR (Non-African American) 40.7 ml/min; Glucose 97 mg/dl (70-99(Fasting)); Potassium 4.4 mmol/L (3.5-5.1); Sodium 136 mmol/L (136-145)
[2023-03-17 06:37] LABS: INR 2.9 (0.9-1.1); Prothrombin Time 29.9 Seconds (9.0-12.0)
[2023-03-17] MEDS ORDERED: KCENTRA (500unit vial) 2000 units IVP IV ONE (07:45)
[2023-03-17] MEDS: lisinopril 2.5 MG TAB PO SCH (10:39)
--- NOTE | 2023-03-17 13:33 | CT Scan Report ---
CT head/brain wo con CLINICAL HISTORY: ff up ich Technique: Contiguous axial CT images of the head were acquired from the base of the skull to the reba mary without intravenous contrast administration. Images were viewed in brain, subdural and [facility]. Automated dose lowering techniques and/or adjustment according to patient size were utilized for this exam. Comparison: Comparison is made to CT and 03/17/2023 Findings: Interval stability of left parieto-occipital parenchymal hemorrhage with surrounding vasogenic edema. No midline shift or herniation is seen. Imaged portions of the paranasal sinuses and mastoid air cells are clear. The orbits appear normal. There are no acute fractures of the calvaria or scalp swelling. Impression: Interval stability of left parieto-occipital parenchymal hemorrhage. ACT 112: Negative or not required by law. Electronically signed by: Wu Escamilla M.D. 03/17/2023 1:30 PM
--- NOTE | 2023-03-17 14:12 | Neurology Consultation ---
Date of Consultation March 17, 2023 Assessment & Plan (1) Intracranial hemorrhage: 87 y/o female with history of breast cancer, atrial fibrillation on coumadin, HTN, HLD, and dementia that presented with worsening confusion, found to have left paieto-occipital hemorrhage. Plan 1. MRI brain w/wo when able 2. Neurochecks q1 3. Repeat CTH for any change in exam 4. BP goal < 140/90 5. Repeat coags now 6. Hold anticoagulation and antiplatelets 7. NSG consultation 8. Goals of care family discussion, consider transfer Telehealth Consultation Telehealth Information Telehealth Information: I performed this visit using a real-time telehealth connection between my location and the patients location ([facility]). After connecting through interactive tele-video, patient was identified by name and date of and/or wristband check.Patient (or authorized healthcare underwriting service representative) was informed that this was a telemedicine visit and it was being conducted confidentially over secure lines. My office door was closed and no one else was present in the room with me.Patient (or authorized healthcare underwriting service representative) provided consent to proceed with the visit, expressed an understanding of privacy and security of the telemedicine visit, and gave permission to have a hospital underwriting service representative in the room in order to assist with the visit and to conduct portions of the visit, as needed. I informed the patient (or authorized healthcare underwriting service representative) that I reviewed their record and presented the opportunity for them to ask any questions regarding the visit today. The patient agreed to participate. History of Present Illness Reason for Consultation: [facility] Requesting Physician: Dr. Randal Canseco Attending Physician: Sienna Shipley MD History of Present Illness 87 y/o female with history of atrial fibrillation,HTN, and dementia that presented to the ED on yesterday with worsening confusion. About two weeks ago, her family noticed that she seemed to be more confused, not recognizing people and not knowing where she was. Until about a month ago, she could walk by herself and then this seemed to decline a few weeks ago and the family purchased a wheelchair. Then on yesterday, she seemed to not be able to stand up on her own, which prompted them bring her to the ED. The family was also noticing increasing agitation at home. She started treatment for the UTIa week ago and it seemed like she was improving after three days of antibiotics. They noticed she could feed herself better and could comb her own hair again. However, she again began delcining, which prompted them to bring her to the ED. Before the last couple of weeks, she was living at home with her children. She was getting up to get dressed but she needed help with bathing. Her son handles her finances and has so for years and they would also do the cooking. At baseline at that time, she struggled with short term memory and was usually disoriented to time. Imaging obtained after presentation on yesterday revealed left parieto-occipital hemorrhage, and INR was found to be 2.9. She did receive vitamin k 10 mg and a dose of K centra. Repeat CTH was obtained and is stable. While in the ED, she was found to have a blood pressure of 171/139 and most recent blood pressure is 123/91. Allergies Allergy/AdvReac Type Severity Reaction Status Date / Time aspirin AdvReac Unknown Verified 03/17/23 01:24 Home Medications Medication Instructions Recorded Confirmed Type donepezil 10 mg tablet 10 mg PO HS 03/17/23 03/17/23 History lisinopril 2.5 mg tablet 2.5 mg PO DAILY 03/17/23 03/17/23 History potassium chloride 10 mEq 10 meq PO BID 03/17/23 03/17/23 History capsule,extended release simvastatin 40 mg tablet 40 mg PO HS 03/17/23 03/17/23 History warfarin 2.5 mg tablet 2.5 mg PO DAILY 03/17/23 03/17/23 History Patient History Social History Smoking Status: Never smoker Hx Alcohol Use: No Hx Substance Use: No Preferred Language: Maltese Communication Ability: Effective Relays Draftsperson Required: No Beliefs That Will Affect Care: None Current Living Situation: Family Current Living Situation Comment: Lives with son Other Information That Helps Us Care for You: No Feels Safe at Home: Yes Safety Concerns: Feels Safe At This Time Assistive Devices: Denture - Upper and Denture - Lower Review of Systems Unable to obtain Physical Exam Awake, alert, and oriented to self, person but not location or time Right homonymous hemianopia EOMI, nystagmus Facial sensations intact No facial asymmetry Tongue protrudes midline Motor: Moves all four extremities antigravity, no drift Sensations: Intact to light touch throughout Cerebellar: Does not cooperate with FTN Results & Data Vital Signs (Past 12 Hours) Vital Signs Temp Pulse Pulse Resp BP BP Pulse Ox 03/17/23 12:00 36.6 C 03/17/23 11:00 80 21 123/91 94 03/17/23 10:38 79 16 146/99 H 93 03/17/23 08:00 86 22 131/82 94 03/17/23 07:08 91 H 14 134/79 94 03/17/23 08:00 36.5 C 03/17/23 06:41 37.5 C 90 15 165/95 H 93 03/17/23 06:27 90 18 165/94 H 90 03/17/23 05:30 79 19 144/78 H 90 03/17/23 05:07 86 24 157/90 H 90 03/17/23 05:00 90 23 157/90 H 91 03/17/23 03:00 85 32 H 166/87 H 92 03/17/23 02:21 80 O2 Del Method 03/17/23 12:00 03/17/23 11:00 Room Air 03/17/23 10:38 Room Air 03/17/23 08:00 Room Air 03/17/23 07:08 Room Air 03/17/23 08:00 03/17/23 06:41 Room Air 03/17/23 06:27 Room Air 03/17/23 05:30 Room Air 03/17/23 05:07 Room Air 03/17/23 05:00 Room Air 03/17/23 03:00 Room Air 03/17/23 02:21 Laboratory Results INR 2.9, Na 136, Creatinine 1.19, Glucose 97, TSH 2.049, UA 1+ LE, negative nitrite, WBC 3.88, HGB 13.5, HCT 40.3, Plts 148 Diagnostic Findings CTH:3.3 x 1.6 x 3.2 cm (volume 8.5 ml) parenchymal hemorrhage within the left occipitoparietal lobe with mild surrounding vasogenic edema. CTH: Interval stability of left parieto-occipital parenchymal hemorrhage.
[2023-03-17 15:11] LABS: Prothrombin Time 11.4 Seconds (9.0-12.0)
--- NOTE | 2023-03-17 15:50 | XRay Report ---
XR chest 1V portable CLINICAL HISTORY: tachypnea, hyponatremia TECHNIQUE: Single frontal radiograph of the chest was obtained. Comparison: Comparison is made to CT abdomen pelvis 12/15/2022 FINDINGS: No lines and tubes are seen. Cardiomegaly is noted. Prominence and cephalization of the vasculature i s seen. Bronchial wall thickening is unchanged. No evidence of pleural effusion or pneumothorax. IMPRESSION: Cardiomegaly and mild pulmonary edema. ACT 112: Negative or not required by law. Electronically signed by: Wu Escamilla M.D. 03/17/2023 3:49 PM
--- NOTE | 2023-03-17 16:19 | Communication Note ---
Date of Service: March 17, 2023 The patient was seen and examined in ICU in presence of her 2 sons. She was admitted with acute delirium and noted to have intracranial hemorrhage. She has been having ambulatory dysfunction for the last 2 months. She did not have any fall that was reported. She has dementia and cannot give any history. She was seen by neurologist this morning and also the ER physician/the admitting doctor did discuss with neurologist during admission. Repeat CAT scan did not show any worsening of the hemorrhage. The patient remains stable since admission and does not have any change in her behavior. She has been moving her limbs. Discussed in detail with the sons who does not want any surgical procedure and wanted to have her observed in this hospital. If the condition gets worse will manage symptomatically. Will repeat CAT scan tomorrow morning or before if there is any change in her condition. MRI when she is more stable. Dr William Shipley
[2023-03-17] MEDS: DONEPEZIL HCL 10 MG TAB PO SCH (20:26)
[2023-03-17] MEDS: SIMVASTATIN 40 MG TAB PO SCH (20:26)
[2023-03-18] MEDS: cefTRIAXone SODIUM 2,000 MG in DEXTROSE 5 % MINI-B 50 ML IV SCH (00:03)
[2023-03-18] MEDS: OLANZapine 10 MG/2.1 ML SDV IM PRN ×3 (02:00→20:23)
[2023-03-18] MEDS ORDERED: OLANZapine 10 MG/2.1 ML SDV IM STA (04:00)
[2023-03-18 05:02] LABS: Basophils # (auto) 0.01 K/uL (0.00-0.20); Basophils % (auto) 0.2 %; Eosinophils # (auto) 0.01 K/uL (0.00-0.50); Eosinophils % (auto) 0.2 %; Hematocrit (blood only) 36.1 % (37.0-47.0); Hemoglobin 11.8 g/dl (12.0-16.0); Immature Granulocytes # (auto) 0.01 K/uL (0.01-0.20); Immature Granulocytes % (auto) 0.2 %; Lymphocytes # (auto) 0.39 K/uL (1.20-3.40); Lymphocytes % (auto) 8.9 %; Mean Corpuscular Hemoglobin 29.9 pg (25.0-34.0); Mean Corpuscular Hgb Conc 32.7 g/dL (32.0-36.0); Mean Corpuscular Volume 91.4 fL (80.0-100.0); Monocytes # (auto) 0.15 K/uL (0.11-0.59); Monocytes % (auto) 3.4 %; Neutrophils # (auto) 3.79 K/uL (1.40-6.50); Neutrophils % (auto) 87.1 %; Platelet Count 153 K/uL (130-400); RDW Coefficient of Variation 13.9 % (11.5-14.5); RDW Standard Deviation 46.5 fL (36.4-46.3); Red Blood Count 3.95 M/uL (4.20-5.40); White Blood Count 4.36 K/ul (4.8-10.8)
[2023-03-18 05:14] LABS: BUN Creatinine Ratio 19.8 (10-20); Calcium 8.7 mg/dl (8.6-10.3); Est GFR (African American) 46.3 ml/min; Est GFR (Non-African American) 39.9 ml/min; Potassium 4.1 mmol/L (3.5-5.1)
[2023-03-18] MEDS ORDERED: NITROGLYCERIN 2% EXT PRN (08:19)
[2023-03-18] MEDS ORDERED: [UNRECOGNIZED DRUG - OTHER] EXT PRN (08:19)
[2023-03-18] MEDS: lisinopril 2.5 MG TAB PO SCH (08:59)
--- NOTE | 2023-03-18 11:21 | CT Scan Report ---
CT head/brain wo con CLINICAL HISTORY: ICH Technique: Contiguous axial CT images of the head were acquired from the base of the skull to the reba mary without intravenous contrast administration. Images were viewed in brain, subdural and bone [facility]. Automated dose lowering techniques and/or adjustment according to patient size were utilized for this exam. Comparison: Comparison is made to CT head 03/17/2023 Findings: Redemonstration of intraparenchymal hemorrhage in the left parietotemporal region. There is surroundi ng vasogenic edema without herniation noted. Imaged portions of the paranasal sinuses and mastoid air cells are clear. The orbits appear normal. There are no acute fractures of the calvaria or scalp swelling. Impression: Stable appearance of left parieto-occipital parenchymal hemorrhage. ACT 112: Negative or not required by law. Electronically signed by: Wu Escamilla M.D. 03/18/2023 11:19 AM
--- NOTE | 2023-03-18 13:26 | Hospitalist Progress Note ---
Date of Service March 18, 2023 Assessment & Plan (1) Intracranial hemorrhage: Plan: Admitted with increasing confusion and also noted to have more weakness involving right side She has been having problem with ambulation for more than a month Noted to have left parietotemporal hemorrhage on admission Case discussed with Dr. Meza of [facility] [place] [facility]. He concurs with the plan but would not recommend additional steroid Rx for vasogenic edema after initial dose given at the ER. Appreciate neurology input and recommendation Discussed in detail with the sons and they want observation for the moment in this hospital They are against any surgical procedure Repeat CT scan of the head x2 following the initial on did not show any increasing hemorrhage or any edema and or midline shift Patient remains stable in the ICU We will get PT and OT evaluation (2) Encephalopathy: Plan: Delirium on dementia Multifactorial: Intracranial hemorrhage, hx Coumadin coagulopathy, hx AF Complicated UTI, failed outpatient treatment, no sepsis for now (3) Acute UTI (urinary tract infection): Plan: Has been having UTI as an outpatient and on Macrobid UA was suggestive of infection-culture is pending She was started with intravenous ceftriaxone (4) Hypertension: Plan: Blood pressure noted to be high We will keep it under control below 140/80 while she is in the hospital (5) Dementia: Plan: Has significant dementia as per daughter sounds Has been having acute delirium with the stroke and possible complicated by UTI (6) Atrial fibrillation: Plan: History of atrial fibrillation with controlled rate Was on Coumadin INR is 2.9 at presentation which is reversed with intravenous vitamin K and also Kcentra following intracranial hemorrhage that was noted in the ER Other significant medical conditions remain stable CKD stage III hyperlipidemia on statin Rx Prediabetes, hemoglobin A1c of 5.04 May 2022 Left breast cancer status post surgery, radiation, tamoxifen Rx, in remission Past tobacco abuse DVT prophylaxis SCDs CODE STATUS DNR/DNI Discussed in detail with the sons Admission and Anticipated Discharge Date Admission Date: March 17, 2023 Subjective 03/18/2023 The patient was seen and examined in ICU in presence of the son She remains confused and has been eating and drinking reasonably She is aggressive at times and requiring one-to-one sitter No nausea no vomiting and denies any other significant symptoms Review of Systems Review of Systems: Unobtainable due to cognitive status Physical Exam Physical Exam: Lying in bed without any acute distress Constitutional: well developed, well nourished, + ill appearing and + obese Eyes: PERRL, conjunctivae normal, anicteric sclerae ENMT: external ear and nose normal, oropharynx normal Neck: trachea midline, no thyromegaly Respiratory: no respiratory distress Auscultation: lungs clear to auscultation bilaterally Cardiovascular: Rate/Rhythm: regular rate and regular rhythm; not tachycardic Heart Sounds: normal S1, normal S2 and + murmur Extremities: + edema (Trace edema bilaterally) Gastrointestinal (Abdomen): Inspection/Auscultation: normal bowel sounds; abdomen not distended Percussion/Palpation: abdomen soft; abdomen nontender Musculoskeletal: No acute arthritis involving any joint Neurologic: moves all extremities (Except diminished movement of the right lower extremity) Psychiatric: Insight: + poor insight Lymphatic: no cervical or axillary lymphadenopathy Results & Data Results & Data Vital Signs (Past 12 Hours) Vital Signs Temp Pulse Pulse Resp BP BP Pulse Ox 03/18/23 11:23 36.6 C 03/18/23 11:23 71 20 156/75 H 95 03/18/23 07:23 52 L 22 139/83 93 03/18/23 07:23 36.4 C L 03/18/23 03:51 36.7 C 97 H 18 161/106 H 96 O2 Del Method 03/18/23 11:23 03/18/23 11:23 Room Air 03/18/23 07:23 Room Air 03/18/23 07:23 03/18/23 03:51 Room Air Laboratory Results Short CBC 03/18/23 Range/Units 04:09 WBC 4.36 L (4.8-10.8) K/ul Hgb 11.8 L (12.0-16.0) g/dl Hct 36.1 L (37.0-47.0) % Plt Count 153 (130-400) K/uL BMP 03/18/23 04:09 Sodium 135 L Potassium 4.1 Chloride 104 Carbon Dioxide 22 BUN 24 H Creatinine 1.21 H Glucose 130 H Calcium 8.7 Medications Administered Current Inpatient Medications Acetaminophen (Acetaminophen 325 Mg Tab) 650 mg PO QID PRN PRN Reason: pain/fever Stop: 04/16/23 02:22 Donepezil HCl (Donepezil Hcl 10 Mg Tab) 10 mg PO HS KAE Stop: 04/16/23 20:59 Last Admin: 03/17/23 20:26 Dose: Not Given Ceftriaxone Sodium 2,000 mg/ (Dextrose) 50 mls @ 100 mls/hr IV Q24H KAE; Protocol Stop: 03/28/23 00:59 Last Infusion: 03/18/23 00:28 Dose: Infused Promethazine HCl 6.25 mg/ (Sodium Chloride) 50.25 mls @ 201 mls/hr IV Q6H PRN PRN Reason: Nausea And Vomiting Stop: 04/16/23 02:22 Lisinopril (Lisinopril 2.5 Mg Tab) 2.5 mg PO DAILY KAE Stop: 04/16/23 08:59 Last Admin: 03/18/23 08:59 Dose: 2.5 mg Nitroglycerin (Nitroglycerin 2% 1 Inch/Pkt Pkt) 0.5 inch EXT Q6H PRN PRN Reason: Blood Pressure - High.SBP>140 Stop: 04/17/23 08:18 Olanzapine (Olanzapine 10 Mg/2.1 Ml Sdv) 2.5 mg IM Q4H PRN PRN Reason: Agitation Stop: 04/16/23 01:45 Last Admin: 03/18/23 13:03 Dose: 2.5 mg Simvastatin (Simvastatin 40 Mg Tab) 40 mg PO HS KAE Stop: 04/16/23 20:59 Last Admin: 03/17/23 20:26 Dose: Not Given
[2023-03-18] MEDS: SIMVASTATIN 40 MG TAB PO SCH (20:24)
[2023-03-18] MEDS: DONEPEZIL HCL 10 MG TAB PO SCH (20:24)
[2023-03-19] MEDS: OLANZapine 10 MG/2.1 ML SDV IM PRN (01:06)
[2023-03-19] MEDS: cefTRIAXone SODIUM 2,000 MG in DEXTROSE 5 % MINI-B 50 ML IV SCH (01:06)
--- NOTE | 2023-03-19 05:58 | Electrocardiogram Report ---
Test Reason : Blood Pressure : / mmHG Vent. Rate : 083 BPM Atrial Rate : 326 BPM P-R Int : 000 ms QRS Dur : 082 ms QT Int : 346 ms P-R-T Axes : 000 077 110 degrees QTc Int : 406 ms Atrial fibrillation Septal infarct , age undetermined Abnormal ECG No previous ECGs available Confirmed by Keshav Bustamante ([id number]) on 03/19/2023 5:58:46 AM Referred By: REFERRED SELF Confirmed By:Keshav Bustamante
[2023-03-19] MEDS: lisinopril 2.5 MG TAB PO SCH (08:14)
--- NOTE | 2023-03-19 13:52 | Hospitalist Progress Note ---
Date of Service March 19, 2023 Assessment & Plan (1) Intracranial hemorrhage: Plan: Admitted with increasing confusion and also noted to have more weakness involving right side She has been having problem with ambulation for more than a month Noted to have left parietotemporal hemorrhage on admission Case [place] Meza [place] [facility] [place] He concurs with the plan but would not recommend additional steroid Rx for vasogenic edema after initial dose given at the ER. Appreciate neurology input and recommendation Discussed in detail with the sons and they want observation for the moment in this hospital They are against any surgical procedure Repeat CT scan of the head x2 following the initial on did not show any increasing hemorrhage or any edema and or midline shift Patient remains stable in the ICU No increase in neurological symptoms and will try to get MRI of the head without contrast at some point as per recommendation We will continue with PT and OT (2) S/P cholecystectomy: (3) Acute UTI (urinary tract infection): Plan: Has been having UTI as an outpatient and on Macrobid UA was suggestive of infection-culture is pending She was started with intravenous ceftriaxone (4) Hypertension: Plan: Blood pressure noted to be high We will keep it under control below 140/80 while she is in the hospital Blood pressure remains on the upper side and will continue with Nitropaste for now (5) Dementia: Plan: Has significant dementia as per daughter sounds Has been having acute delirium with the stroke and possible complicated by UTI Has significant dementia now with delirium (6) Atrial fibrillation: Plan: History of atrial fibrillation with controlled rate Was on Coumadin INR is 2.9 at presentation which is reversed with intravenous vitamin K and also Kcentra following intracranial hemorrhage that was noted in the ER Has been getting any more anticoagulation Other significant medical conditions remain stable CKD stage III hyperlipidemia on statin Rx Prediabetes, hemoglobin A1c of 5.04 May 2022 Left breast cancer status post surgery, radiation, tamoxifen Rx, in remission Past tobacco abuse DVT prophylaxis SCDs CODE STATUS DNR/DNI Discussed in detail with the sons Will discuss with the son Admission and Anticipated Discharge Date Admission Date: March 17, 2023 Subjective 03/18/2023 The patient was seen and examined in ICU in presence of the son She remains confused and has been eating and drinking reasonably She is aggressive at times and requiring one-to-one sitter No nausea no vomiting and denies any other significant symptoms 03/19/2023 The patient was seen and examined in ICU She remains stable, communicative with confusion and occasional agitation Does not have any other distress at rest Review of Systems Review of Systems: Could not be reliably obtained secondary to dementia Physical Exam Physical Exam: Lying in bed without any acute distress but has a little restlessness Constitutional: well developed, well nourished, + ill appearing and + obese Eyes: PERRL, conjunctivae normal, anicteric sclerae ENMT: external ear and nose normal, oropharynx normal Neck: trachea midline, no thyromegaly Respiratory: no respiratory distress Auscultation: lungs clear to auscultation bilaterally Cardiovascular: Rate/Rhythm: regular rate and regular rhythm; not tachycardic Heart Sounds: normal S1, normal S2 and + murmur Extremities: + edema (Trace edema bilaterally) Gastrointestinal (Abdomen): Inspection/Auscultation: normal bowel sounds; abdomen not distended Percussion/Palpation: abdomen soft; abdomen nontender Neurologic: moves all extremities (Except diminished movement of the right lower extremity) Clinically has a little diminished power involving the right lower extremity Psychiatric: Insight: + poor insight Lymphatic: no cervical or axillary lymphadenopathy Results & Data Results & Data Vital Signs (Past 12 Hours) Vital Signs Temp Pulse Pulse Resp BP BP Pulse Ox 03/19/23 11:00 36.3 C L 80 24 159/102 H 92 03/19/23 08:47 03/19/23 08:00 60 03/19/23 07:00 36.4 C L 58 L 20 139/76 96 03/19/23 08:00 73 18 139/76 95 03/19/23 07:00 56 L 10 L 96 03/19/23 04:00 51 L 03/19/23 02:00 65 8 L O2 Del Method 03/19/23 11:00 Room Air 03/19/23 08:47 Room Air 03/19/23 08:00 03/19/23 07:00 Room Air 03/19/23 08:00 Room Air 03/19/23 07:00 03/19/23 04:00 03/19/23 02:00 Medications Administered Current Inpatient Medications Acetaminophen (Acetaminophen 325 Mg Tab) 650 mg PO QID PRN PRN Reason: pain/fever Stop: 04/16/23 02:22 Donepezil HCl (Donepezil Hcl 10 Mg Tab) 10 mg PO HS KAE Stop: 04/16/23 20:59 Last Admin: 03/18/23 20:24 Dose: 10 mg Ceftriaxone Sodium 2,000 mg/ (Dextrose) 50 mls @ 100 mls/hr IV Q24H KAE; Protocol Stop: 03/28/23 00:59 Last Infusion: 03/19/23 01:36 Dose: Infused Promethazine HCl 6.25 mg/ (Sodium Chloride) 50.25 mls @ 201 mls/hr IV Q6H PRN PRN Reason: Nausea And Vomiting Stop: 04/16/23 02:22 Lisinopril (Lisinopril 2.5 Mg Tab) 2.5 mg PO DAILY KAE Stop: 04/16/23 08:59 Last Admin: 03/19/23 08:14 Dose: 2.5 mg Nitroglycerin (Nitroglycerin 2% 1 Inch/Pkt Pkt) 0.5 inch EXT Q6H PRN PRN Reason: Blood Pressure - High.SBP>140 Stop: 04/17/23 08:18 Olanzapine (Olanzapine 10 Mg/2.1 Ml Sdv) 2.5 mg IM Q4H PRN PRN Reason: Agitation Stop: 04/16/23 01:45 Last Admin: 03/19/23 01:06 Dose: 2.5 mg Simvastatin (Simvastatin 40 Mg Tab) 40 mg PO HS KAE Stop: 04/16/23 20:59 Last Admin: 03/18/23 20:24 Dose: 40 mg
[2023-03-19] MEDS: SIMVASTATIN 40 MG TAB PO SCH (20:04)
[2023-03-19] MEDS: DONEPEZIL HCL 10 MG TAB PO SCH (20:04)
[2023-03-20] MEDS: cefTRIAXone SODIUM 2,000 MG in DEXTROSE 5 % MINI-B 50 ML IV SCH (01:31)
[2023-03-20 04:29] LABS: Basophils # (auto) 0.02 K/uL (0.00-0.20); Basophils % (auto) 0.4 %; Eosinophils % (auto) 6.5 %; Hematocrit (blood only) 37.7 % (37.0-47.0); Hemoglobin 12.1 g/dl (12.0-16.0); Immature Granulocytes # (auto) 0.01 K/uL (0.01-0.20); Immature Granulocytes % (auto) 0.2 %; Lymphocytes % (auto) 23.7 %; Mean Corpuscular Hemoglobin 29.8 pg (25.0-34.0); Mean Corpuscular Hgb Conc 32.1 g/dL (32.0-36.0); Mean Corpuscular Volume 92.9 fL (80.0-100.0); Mean Platelet Volume 9.7 fL (9.4-12.4); Monocytes # (auto) 0.29 K/uL (0.11-0.59); Monocytes % (auto) 6.3 %; Neutrophils # (auto) 2.92 K/uL (1.40-6.50); Neutrophils % (auto) 62.9 %; Platelet Count 166 K/uL (130-400); RDW Coefficient of Variation 14.6 % (11.5-14.5); RDW Standard Deviation 50.2 fL (36.4-46.3); Red Blood Count 4.06 M/uL (4.20-5.40); White Blood Count 4.64 K/ul (4.8-10.8)
[2023-03-20 04:45] LABS: Calcium 8.4 mg/dl (8.6-10.3); Creatinine Clr Calc Pharmacy 26.6 ml/min; Est GFR (African American) 46.7 ml/min; Est GFR (Non-African American) 40.3 ml/min; Potassium 3.7 mmol/L (3.5-5.1)
[2023-03-20] MEDS: lisinopril 2.5 MG TAB PO SCH (10:02)
[2023-03-20] MEDS ORDERED: ATROPINE SULFATE 0.1 MG/ML 10ML SYR IV STA ×2 (10:15→10:17)
--- NOTE | 2023-03-20 13:37 | Hospitalist Progress Note ---
Date of Service March 20, 2023 Assessment & Plan (1) Intracranial hemorrhage: Plan: Admitted with increasing confusion and also noted to have more weakness involving right side She has been having problem with ambulation for more than a month Noted to have left parietotemporal hemorrhage on admission Case discussed with Dr. Meza of [facility] [place] Neu[facility]. He concurs with the plan but would not recommend additional steroid Rx for vasogenic edema after initial dose given at the ER. Appreciate neurology input and recommendation Discussed in detail with the sons and they want observation for the moment in this hospital They are against any surgical procedure Repeat CT scan of the head x2 following the initial on did not show any increasing hemorrhage or any edema and or midline shift Patient remains stable in the ICU No increase in neurological symptoms and will try to get MRI of the head without contrast at some point as per recommendation Condition has been worse since last night-likely having increased intracranial pressure from hemorrhage Will have MRI if the condition remains stable Discussed with the son and the patient remains DNR/DNI Bradycardia arrhythmia with decreased respiration Having frequent pauses and bradycardia Likely secondary to increased intraocular pressure We will try 1 dose of atropine Condition remains critical and that was conveyed to the son (2) S/P cholecystectomy: (3) Acute UTI (urinary tract infection): Plan: Has been having UTI as an outpatient and on Macrobid UA was suggestive of infection-culture is pending She was started with intravenous ceftriaxone (4) Hypertension: Plan: Blood pressure noted to be high We will keep it under control below 140/80 while she is in the hospital Blood pressure remains on the upper side and will continue with Nitropaste for now (5) Dementia: Plan: Has significant dementia as per daughter sounds Has been having acute delirium with the stroke and possible complicated by UTI Has significant dementia now with delirium (6) Atrial fibrillation: Plan: History of atrial fibrillation with controlled rate Was on Coumadin INR is 2.9 at presentation which is reversed with intravenous vitamin K and also Kcentra following intracranial hemorrhage that was noted in the ER Has been getting any more anticoagulation Other significant medical conditions remain stable CKD stage III hyperlipidemia on statin Rx Prediabetes, hemoglobin A1c of 5.04 May 2022 Left breast cancer status post surgery, radiation, tamoxifen Rx, in remission Past tobacco abuse DVT prophylaxis SCDs CODE STATUS DNR/DNI Discussed in detail with the sons Son was updated regarding her clinical state Admission and Anticipated Discharge Date Admission Date: March 17, 2023 Subjective 03/18/2023 The patient was seen and examined in ICU in presence of the son She remains confused and has been eating and drinking reasonably She is aggressive at times and requiring one-to-one sitter No nausea no vomiting and denies any other significant symptoms 03/19/2023 The patient was seen and examined in ICU She remains stable, communicative with confusion and occasional agitation Does not have any other distress at rest 03/20/2023 The patient was seen and examined in ICU in presence of the son Her condition has been deteriorating since last night with decreased responsiveness and also noted to have frequent pauses and bradycardia arrhythmia Review of Systems Review of Systems: Could not be reliably obtained secondary to dementia Physical Exam Physical Exam: Lying in bed without any acute distress and has been very calm and quiet during examination Constitutional: well developed, well nourished, + ill appearing and + obese Eyes: PERRL, conjunctivae normal, anicteric sclerae ENMT: external ear and nose normal, oropharynx normal Neck: trachea midline, no thyromegaly Respiratory: no respiratory distress Auscultation: lungs clear to auscultation bilaterally Cardiovascular: Rate/Rhythm: regular rate and regular rhythm; not tachycardic Heart Sounds: normal S1, normal S2 and + murmur Extremities: + edema (Trace edema bilaterally) Gastrointestinal (Abdomen): Inspection/Auscultation: normal bowel sounds; abdomen not distended Percussion/Palpation: abdomen soft; abdomen nontender Neurologic: moves all extremities (Except diminished movement of the right lower extremity) Has not been aggressive and answering a few questions Psychiatric: Insight: + poor insight Lymphatic: no cervical or axillary lymphadenopathy Results & Data Results & Data Vital Signs (Past 12 Hours) Vital Signs Temp Pulse Pulse Resp BP BP Pulse Ox 03/20/23 09:00 03/20/23 09:00 46 L 03/20/23 06:00 47 L 3 L 03/20/23 04:00 60 9 L 03/20/23 03:04 124/58 L 03/20/23 03:04 55 L 13 96 03/20/23 02:00 53 L 8 L 03/20/23 03:06 37.5 C 97 H 16 124/58 L 97 O2 Del Method 03/20/23 09:00 Room Air 03/20/23 09:00 03/20/23 06:00 03/20/23 04:00 03/20/23 03:04 03/20/23 03:04 03/20/23 02:00 03/20/23 03:06 Room Air Laboratory Results Short CBC 03/20/23 Range/Units 04:00 WBC 4.64 L (4.8-10.8) K/ul Hgb 12.1 (12.0-16.0) g/dl Hct 37.7 (37.0-47.0) % Plt Count 166 (130-400) K/uL BMP 03/20/23 04:00 Sodium 140 Potassium 3.7 Chloride 110 H Carbon Dioxide 25 BUN 24 H Creatinine 1.20 Glucose 87 Calcium 8.4 L Medications Administered Current Inpatient Medications Acetaminophen (Acetaminophen 325 Mg Tab) 650 mg PO QID PRN PRN Reason: pain/fever Stop: 04/16/23 02:22 Donepezil HCl (Donepezil Hcl 10 Mg Tab) 10 mg PO HS KAE Stop: 04/16/23 20:59 Last Admin: 03/19/23 20:04 Dose: 10 mg Ceftriaxone Sodium 2,000 mg/ (Dextrose) 50 mls @ 100 mls/hr IV Q24H KAE; Protocol Stop: 03/28/23 00:59 Last Infusion: 03/20/23 02:05 Dose: Infused Promethazine HCl 6.25 mg/ (Sodium Chloride) 50.25 mls @ 201 mls/hr IV Q6H PRN PRN Reason: Nausea And Vomiting Stop: 04/16/23 02:22 Lisinopril (Lisinopril 2.5 Mg Tab) 2.5 mg PO DAILY KAE Stop: 04/16/23 08:59 Last Admin: 03/20/23 10:02 Dose: Not Given Nitroglycerin (Nitroglycerin 2% 1 Inch/Pkt Pkt) 0.5 inch EXT Q6H PRN PRN Reason: Blood Pressure - High.SBP>140 Stop: 04/17/23 08:18 Olanzapine (Olanzapine 10 Mg/2.1 Ml Sdv) 2.5 mg IM Q4H PRN PRN Reason: Agitation Stop: 04/16/23 01:45 Last Admin: 03/19/23 01:06 Dose: 2.5 mg Simvastatin (Simvastatin 40 Mg Tab) 40 mg PO HS KAE Stop: 04/16/23 20:59 Last Admin: 03/19/23 20:04 Dose: 40 mg
[2023-03-20] MEDS ORDERED: GADOBUTROL 65ML VIAL IV ONE (14:56)
--- NOTE | 2023-03-20 15:20 | Magnetic Resonance Report ---
MRI OF THE BRAIN WITHOUT AND WITH IV CONTRAST CLINICAL HISTORY: Intracranial hemorrhage. COMPARISON STUDY: Head CT March 18, 2023. TECHNIQUE: Utilizing a 1.5 Cassidy magnet and dedicated coil, multiplanar, multiecho imaging of the br ain was performed pre and postcontrast administration. IV administration of 7.5 mL of Gadavist contr ast was uneventful. Thin cut T1 post contrast imaging was performed. FINDINGS: There is a 4 mm hyperintense focus within the left frontal lobe on diffusion-weighted seque nce image 17 of . This is hypointense on the ADC map and there is a corresponding subtle hypointens e focus on the coronal FLAIR sequence. The left parieto-occipital hematoma is similar in size to CT o f March 18, 2023. This hematoma measures 4.9 x 3.2 x 4.3 cm. There is mild mass effect with adjacen t vasogenic edema and sulcal effacement. This hematoma is partially T1 hyperintense and centrally T1 hypointense. This hematoma is mildly hyperintense on the T2-weighted sequences with a peripheral T2 h ypointense rim. No underlying enhancement is identified. No additional sites of hemorrhage are presen t. There is mild compression on the occipital horn and atrium of the left lateral ventricle. Otherwis e, ventricular system is unremarkable. Basal cisterns are patent. Flow-voids for the major intracrani al vessels are present. No intracranial mass or pathologic enhancement is identified. Calvarial signa l is normal. IMPRESSION: 1. No significant change in size of a 4.9 x 3.2 x 4.3 cm left parieto-occipital intraparenchymal evin ricky with associated vasogenic edema and mild mass effect. This hematoma is likely late subacute in a ge. No enhancement to suggest underlying mass. However, continued imaging follow-up to ensure resolut ion is recommended. 2. Probable punctate subacute to acute infarct within left frontal lobe. ACT 112: Negative or not required by law. Electronically signed by: Meño Parr M.D. 03/20/2023 3:18 PM
[2023-03-20] MEDS: SIMVASTATIN 40 MG TAB PO SCH (20:40)
[2023-03-20] MEDS: DONEPEZIL HCL 10 MG TAB PO SCH (20:40)
[2023-03-21] MEDS: cefTRIAXone SODIUM 2,000 MG in DEXTROSE 5 % MINI-B 50 ML IV SCH ×2 (00:31→22:19)
[2023-03-21] MEDS: lisinopril 2.5 MG TAB PO SCH (08:33)
--- NOTE | 2023-03-21 13:30 | Hospitalist Progress Note ---
Date of Service March 21, 2023 Assessment & Plan (1) Intracranial hemorrhage: Plan: Admitted with increasing confusion and also noted to have more weakness involving right side She has been having problem with ambulation for more than a month Noted to have left parietotemporal hemorrhage on admission Case discussed with Dr. Meza of [facility] [place] Neurology. He concurs with the plan but would not recommend additional steroid Rx for vasogenic edema after initial dose given at the ER. Appreciate neurology input and recommendation Discussed in detail with the sons and they want observation for the moment in this hospital They are against any surgical procedure Repeat CT scan of the head x2 following the initial on did not show any increasing hemorrhage or any edema and or midline shift Patient remains stable in the ICU No increase in neurological symptoms and will try to get MRI of the head without contrast at some point as per recommendation Condition has been worse since last night-likely having increased intracranial pressure from hemorrhage Will have MRI if the condition remains stable Discussed with the son and the patient remains DNR/DNI Much better today, communicating normally at her baseline dementia Has been eating and drinking reasonably Bradycardia arrhythmia with decreased respiration Having frequent pauses and bradycardia Likely secondary to increased intraocular pressure We will try 1 dose of atropine Condition remains critical and that was conveyed to the son No more bradycardia arrhythmia and pauses Remains hemodynamically stable We will transfer the patient to medical floor with telemetry and continued care (2) S/P cholecystectomy: (3) Acute UTI (urinary tract infection): Plan: Has been having UTI as an outpatient and on Macrobid UA was suggestive of infection-culture is pending She was started with intravenous ceftriaxone Continue current antibiotic (4) Hypertension: Plan: Blood pressure noted to be high We will keep it under control below 140/80 while she is in the hospital Blood pressure remains on the upper side and will continue with Nitropaste for now Blood pressure remains stable (5) Dementia: Plan: Has significant dementia as per daughter sounds Has been having acute delirium with the stroke and possible complicated by UTI Has significant dementia now with delirium (6) Atrial fibrillation: Plan: History of atrial fibrillation with controlled rate Was on Coumadin INR is 2.9 at presentation which is reversed with intravenous vitamin K and also Kcentra following intracranial hemorrhage that was noted in the ER Has been getting any more anticoagulation Will not give any more anticoagulation given intracranial hemorrhage Other significant medical conditions remain stable CKD stage III hyperlipidemia on statin Rx Prediabetes, hemoglobin A1c of 5.04 May 2022 Left breast cancer status post surgery, radiation, tamoxifen Rx, in remission Past tobacco abuse DVT prophylaxis SCDs CODE STATUS DNR/DNI Discussed in detail with the sons Son was updated regarding her clinical state Remains stable Admission and Anticipated Discharge Date Admission Date: March 17, 2023 Subjective 03/18/2023 The patient was seen and examined in ICU in presence of the son She remains confused and has been eating and drinking reasonably She is aggressive at times and requiring one-to-one sitter No nausea no vomiting and denies any other significant symptoms 03/19/2023 The patient was seen and examined in ICU She remains stable, communicative with confusion and occasional agitation Does not have any other distress at rest 03/20/2023 The patient was seen and examined in ICU in presence of the son Her condition has been deteriorating since last night with decreased responsiveness and also noted to have frequent pauses and bradycardia arrhythmia 03/21/2023 The patient was seen and examined in ICU in presence of the son She has had an MRI yesterday that did not show slight increase in edema of the intracranial hemorrhage Surprisingly she did not have any more pauses in the monitor and the heart rate is maintained around more than 60s with blood pressure on the upper side and 148/79 She has been more alert and awake but remains confused from her baseline dementia Review of Systems Review of Systems: Could not be reliably obtained secondary to dementia Physical Exam Physical Exam: Lying in bed without any acute distress and has been very calm and quiet during examination Constitutional: well developed, well nourished, + ill appearing and + obese Eyes: PERRL, conjunctivae normal, anicteric sclerae ENMT: external ear and nose normal, oropharynx normal Neck: trachea midline, no thyromegaly Respiratory: no respiratory distress Auscultation: lungs clear to auscultation bilaterally Cardiovascular: Rate/Rhythm: regular rate and regular rhythm; not tachycardic Heart Sounds: normal S1, normal S2 and + murmur Extremities: + edema (Trace edema bilaterally) Gastrointestinal (Abdomen): Inspection/Auscultation: normal bowel sounds; abdomen not distended Percussion/Palpation: abdomen soft; abdomen nontender Musculoskeletal: Moves all limbs with commands and seems to be less in the right lower extremity Neurologic: moves all extremities (Except diminished movement of the right lower extremity) Psychiatric: Insight: + poor insight Lymphatic: no cervical or axillary lymphadenopathy Results & Data Results & Data Vital Signs (Past 12 Hours) Vital Signs Temp Pulse Pulse Resp BP Pulse Ox O2 Del Method 03/21/23 10:46 36.5 C 63 24 148/79 H 95 Room Air 03/21/23 04:00 36.6 C 62 24 173/89 H 95 Room Air Medications Administered Current Inpatient Medications Acetaminophen (Acetaminophen 325 Mg Tab) 650 mg PO QID PRN PRN Reason: pain/fever Stop: 04/16/23 02:22 Donepezil HCl (Donepezil Hcl 10 Mg Tab) 10 mg PO HS KAE Stop: 04/16/23 20:59 Last Admin: 03/20/23 20:40 Dose: 10 mg Ceftriaxone Sodium 2,000 mg/ (Dextrose) 50 mls @ 100 mls/hr IV Q24H KAE; Protocol Stop: 03/28/23 00:59 Last Infusion: 03/21/23 01:05 Dose: Infused Promethazine HCl 6.25 mg/ (Sodium Chloride) 50.25 mls @ 201 mls/hr IV Q6H PRN PRN Reason: Nausea And Vomiting Stop: 04/16/23 02:22 Lisinopril (Lisinopril 2.5 Mg Tab) 2.5 mg PO DAILY KAE Stop: 04/16/23 08:59 Last Admin: 03/21/23 08:33 Dose: 2.5 mg Nitroglycerin (Nitroglycerin 2% 1 Inch/Pkt Pkt) 0.5 inch EXT Q6H PRN PRN Reason: Blood Pressure - High.SBP>140 Stop: 04/17/23 08:18 Olanzapine (Olanzapine 10 Mg/2.1 Ml Sdv) 2.5 mg IM Q4H PRN PRN Reason: Agitation Stop: 04/16/23 01:45 Last Admin: 03/19/23 01:06 Dose: 2.5 mg Simvastatin (Simvastatin 40 Mg Tab) 40 mg PO HS KAE Stop: 04/16/23 20:59 Last Admin: 03/20/23 20:40 Dose: 40 mg
[2023-03-21] MEDS ORDERED: Nursing to Pharmacy Communication SCH (20:15)
[2023-03-21] MEDS: SIMVASTATIN 40 MG TAB PO SCH (22:20)
[2023-03-21] MEDS: OLANZapine 10 MG/2.1 ML SDV IM PRN (22:20)
[2023-03-21] MEDS: DONEPEZIL HCL 10 MG TAB PO SCH (22:20)
[2023-03-22 07:21] LABS: Basophils # (auto) 0.03 K/uL (0.00-0.20); Basophils % (auto) 0.5 %; Eosinophils # (auto) 0.23 K/uL (0.00-0.50); Eosinophils % (auto) 3.7 %; Hematocrit (blood only) 39.3 % (37.0-47.0); Hemoglobin 12.9 g/dl (12.0-16.0); Immature Granulocytes # (auto) 0.01 K/uL (0.01-0.20); Immature Granulocytes % (auto) 0.2 %; Lymphocytes # (auto) 0.82 K/uL (1.20-3.40); Lymphocytes % (auto) 13.1 %; Mean Corpuscular Hemoglobin 30.1 pg (25.0-34.0); Mean Corpuscular Hgb Conc 32.8 g/dL (32.0-36.0); Mean Corpuscular Volume 91.8 fL (80.0-100.0); Mean Platelet Volume 9.7 fL (9.4-12.4); Monocytes % (auto) 6.4 %; Neutrophils # (auto) 4.78 K/uL (1.40-6.50); Neutrophils % (auto) 76.1 %; Platelet Count 182 K/uL (130-400); RDW Coefficient of Variation 14.4 % (11.5-14.5); RDW Standard Deviation 48.5 fL (36.4-46.3); Red Blood Count 4.28 M/uL (4.20-5.40); White Blood Count 6.27 K/ul (4.8-10.8)
[2023-03-22 07:33] LABS: BUN Creatinine Ratio 16.9 (10-20); Calcium 8.5 mg/dl (8.6-10.3); Creatinine Clr Calc Pharmacy 25.9 ml/min; Est GFR (African American) 47.7 ml/min; Est GFR (Non-African American) 41.1 ml/min; Magnesium 1.9 mg/dl (1.7-2.4); Phosphorus 2.7 mg/dl (2.5-4.9); Potassium 3.2 mmol/L (3.5-5.1)
[2023-03-22] MEDS ORDERED: ATROPINE SULFATE 0.1 MG/ML 10ML SYR IV STA (07:45)
[2023-03-22] MEDS: lisinopril 2.5 MG TAB PO SCH (07:58)
[2023-03-22] MEDS: POTASSIUM CHLORIDE / WTR 10 MEQ/100 ML PLCT IV SCH ×2 (10:12→11:19)
[2023-03-22] MEDS ORDERED: ATROPINE SULFATE 0.1 MG/ML 5ML SYR IV ONE (10:44)
--- NOTE | 2023-03-22 16:36 | Hospitalist Progress Note ---
Date of Service March 22, 2023 Assessment & Plan (1) Intracranial hemorrhage: Plan: Admitted with increasing confusion and also noted to have more weakness involving right side She has been having problem with ambulation for more than a month Noted to have left parietotemporal hemorrhage on admission Case discussed with Dr. Meza of [facility]. He concurs with the plan but would not recommend additional steroid Rx for vasogenic edema after initial dose given at the ER. Appreciate neurology input and recommendation Discussed in detail with the sons and they want observation for the moment in this hospital They are against any surgical procedure Repeat CT scan of the head x2 following the initial on did not show any increasing hemorrhage or any edema and or midline shift Patient remains stable in the ICU No increase in neurological symptoms and will try to get MRI of the head without contrast at some point as per recommendation Condition has been worse since last night-likely having increased intracranial pressure from hemorrhage Will have MRI if the condition remains stable Discussed with the son and the patient remains DNR/DNI Much better today, communicating normally at her baseline dementia Has been eating and drinking reasonably Remains stable with confusion as before secondary to dementia Bradycardia arrhythmia with decreased respiration Having frequent pauses and bradycardia Likely secondary to increased intraocular pressure We will try 1 dose of atropine Condition remains critical and that was conveyed to the son No more bradycardia arrhythmia and pauses Remains hemodynamically stable We will transfer the patient to medical floor with telemetry and continued care Noted to have bradycardia arrhythmia this morning on 1 or 2 occasions and relieved with 1 dose of atropine IV Updated son that the condition may get worse anytime but so far remains critical but stable (2) S/P cholecystectomy: (3) Acute UTI (urinary tract infection): Plan: Has been having UTI as an outpatient and on Macrobid UA was suggestive of infection-culture is pending She was started with intravenous ceftriaxone Continue current antibiotic (4) Hypertension: Plan: Blood pressure noted to be high We will keep it under control below 140/80 while she is in the hospital Blood pressure remains on the upper side and will continue with Nitropaste for now Blood pressure remains stable Blood pressure remains on the lower side of normal (5) Dementia: Plan: Has significant dementia as per daughter sounds Has been having acute delirium with the stroke and possible complicated by UTI Has significant dementia now with delirium (6) Atrial fibrillation: Plan: History of atrial fibrillation with controlled rate Was on Coumadin INR is 2.9 at presentation which is reversed with intravenous vitamin K and also Kcentra following intracranial hemorrhage that was noted in the ER Has been getting any more anticoagulation Will not give any more anticoagulation given intracranial hemorrhage No anticoagulation Other significant medical conditions remain stable CKD stage III hyperlipidemia on statin Rx Prediabetes, hemoglobin A1c of 5.04 May 2022 Left breast cancer status post surgery, radiation, tamoxifen Rx, in remission Past tobacco abuse DVT prophylaxis SCDs CODE STATUS DNR/DNI Discussed in detail with the sons Son was updated regarding her clinical state Remains stable Admission and Anticipated Discharge Date Admission Date: March 17, 2023 Subjective 03/18/2023 The patient was seen and examined in ICU in presence of the son She remains confused and has been eating and drinking reasonably She is aggressive at times and requiring one-to-one sitter No nausea no vomiting and denies any other significant symptoms 03/19/2023 The patient was seen and examined in ICU She remains stable, communicative with confusion and occasional agitation Does not have any other distress at rest 03/20/2023 The patient was seen and examined in ICU in presence of the son Her condition has been deteriorating since last night with decreased resp onsiveness and also noted to have frequent pauses and bradycardia arrhythmia 03/21/2023 The patient was seen and examined in ICU in presence of the son She has had an MRI yesterday that did not show slight increase in edema of the intracranial hemorrhage Surprisingly she did not have any more pauses in the monitor and the heart rate is maintained around more than 60s with blood pressure on the upper side and 148/79 She has been more alert and awake but remains confused from her baseline dementia 03/22/2023 The patient was seen and examined in telemetry unit in presence of the son She has been stable but was noted to have occasional bradycardia arrhythmia this morning with heart rate going down below 35 She did not have any new symptoms related She has been eating and drinking reasonably and remains confused at her baseline Review of Systems Review of Systems: Could not be reliably obtained secondary to dementia Physical Exam Physical Exam: Lying in bed without any acute distress and has been very calm and quiet during examination Constitutional: well developed, well nourished, + ill appearing and + obese Eyes: PERRL, conjunctivae normal, anicteric sclerae ENMT: external ear and nose normal, oropharynx normal Neck: trachea midline, no thyromegaly Respiratory: no respiratory distress Auscultation: lungs clear to auscultation bilaterally Cardiovascular: Rate/Rhythm: regular rate and regular rhythm; not tachycardic Heart Sounds: normal S1, normal S2 and + murmur Extremities: + edema (Trace edema bilaterally) Gastrointestinal (Abdomen): Inspection/Auscultation: normal bowel sounds; abdomen not distended Percussion/Palpation: abdomen soft; abdomen nontender Neurologic: moves all extremities (Except diminished movement of the right lower extremity) Psychiatric: Insight: + poor insight Lymphatic: no cervical or axillary lymphadenopathy Results & Data Results & Data Vital Signs (Past 12 Hours) Vital Signs Temp Pulse Pulse Resp BP BP Pulse Ox 03/22/23 15:58 36.5 C 66 20 91/53 L 92 03/22/23 15:14 91 H 03/22/23 11:28 36.3 C L 106 H 18 166/95 H 93 03/22/23 07:52 36.5 C 80 18 132/65 90 03/22/23 07:48 42 L O2 Del Method 03/22/23 15:58 Room Air 03/22/23 15:14 03/22/23 11:28 Room Air 03/22/23 07:52 Room Air 03/22/23 07:48 Laboratory Results Short CBC 03/22/23 Range/Units 06:23 WBC 6.27 (4.8-10.8) K/ul Hgb 12.9 (12.0-16.0) g/dl Hct 39.3 (37.0-47.0) % Plt Count 182 (130-400) K/uL BMP 03/22/23 06:23 Sodium 140 Potassium 3.2 L Chloride 106 Carbon Dioxide 28 BUN 20 Creatinine 1.18 Glucose 96 Calcium 8.5 L Medications Administered Current Inpatient Medications Acetaminophen (Acetaminophen 325 Mg Tab) 650 mg PO QID PRN PRN Reason: pain/fever Stop: 04/16/23 02:22 Donepezil HCl (Donepezil Hcl 10 Mg Tab) 10 mg PO HS KAE Stop: 04/16/23 20:59 Last Admin: 03/21/23 22:20 Dose: 10 mg Ceftriaxone Sodium 2,000 mg/ (Dextrose) 50 mls @ 100 mls/hr IV Q24H KAE; Protocol Stop: 03/28/23 00:59 Last Infusion: 03/21/23 22:49 Dose: Infused Promethazine HCl 6.25 mg/ (Sodium Chloride) 50.25 mls @ 201 mls/hr IV Q6H PRN PRN Reason: Nausea And Vomiting Stop: 04/16/23 02:22 Lisinopril (Lisinopril 2.5 Mg Tab) 2.5 mg PO DAILY [facility] Stop: 04/16/23 08:59 Last Admin: 03/22/23 07:58 Dose: 2.5 mg Nitroglycerin (Nitroglycerin 2% 1 Inch/Pkt Pkt) 0.5 inch EXT Q6H PRN PRN Reason: Blood Pressure - High.SBP>140 Stop: 04/17/23 08:18 Olanzapine (Olanzapine 10 Mg/2.1 Ml Sdv) 2.5 mg IM Q4H PRN PRN Reason: Agitation Stop: 04/16/23 01:45 Last Admin: 03/21/23 22:20 Dose: 2.5 mg Simvastatin (Simvastatin 40 Mg Tab) 40 mg PO HS KAE Stop: 04/16/23 20:59 Last Admin: 03/21/23 22:20 Dose: 40 mg
[2023-03-22] MEDS: cefTRIAXone SODIUM 2,000 MG in DEXTROSE 5 % MINI-B 50 ML IV SCH (19:40)
[2023-03-22] MEDS: DONEPEZIL HCL 10 MG TAB PO SCH (19:41)
[2023-03-22] MEDS: SIMVASTATIN 40 MG TAB PO SCH (19:41)
[2023-03-23] MEDS ORDERED: ONDANSETRON INJ 2 MG/ML 2 ML VIAL IV PRN (07:54)
[2023-03-23] MEDS ORDERED: LORazepam 2 MG/1 ML VIAL IV PRN (07:54)
[2023-03-23] MEDS ORDERED: LORazepam 0.5 MG TAB PO PRN (07:54)
[2023-03-23] MEDS ORDERED: ONDANSETRON 4 MG OD TAB SL PRN (07:54)
--- NOTE | 2023-03-23 07:54 | Hospitalist Progress Note ---
Date of Service March 23, 2023 Assessment & Plan (1) Comfort measures only status: Plan: Discussion with son Gil Ludwig at about 7:30AM on 03/23/2023. Would no longer like atropine administered for HR in the 20s. States it is her time to go and he has contacted other family members. Agreeable to comfort measures- orders placed as well as palliative care consult. (2) Intracranial hemorrhage: Plan: Admitted with increasing confusion and also noted to have more weakness involving right side She has been having problem with ambulation for more than a month Noted to have left parietotemporal hemorrhage on admission Case discussed with Dr. Meza of [facility] Neurology. He concurs with the plan but would not recommend additional steroid Rx for vasogenic edema after initial dose given at the ER. Discussed in detail by previous provider with the sons and they wanted observation at that time in this hospital They are against any surgical procedure. Repeat CT scan of the head x2 following the initial one did not show any increasing hemorrhage or any edema and or midline shift Bradycardia arrhythmia with decreased respiration Having frequent pauses and bradycardia Previously treated with a dose of atropine, family currently declining further treatment Condition remains critical and that was conveyed to the son by the previous provider Son aware that the condition may get worse anytime but so far remains critical but stable 03/23- Discussion with son Gil Ludwig at about 7:30AM on 03/23/2023. Would no longer like atropine administered for HR in the 20s. States it is her time to go and he has contacted other family members. Agreeable to comfort measures- orders placed as well as palliative care consult. (3) S/P cholecystectomy: (4) Acute UTI (urinary tract infection): Plan: Has been having UTI as an outpatient and on Macrobid UA was suggestive of infection-culture grew GBS Treated with IV Rocephin for 5 days, has been discontinued. (5) Hypertension: Plan: Currently hypotensive Hold home lisinopril (6) Dementia: Plan: Has significant dementia per family Has been having acute delirium with the stroke and possible complicated by UTI Delirium precautions. Frequent reorientation, avoid sedating medications (7) Atrial fibrillation: Plan: History of atrial fibrillation with controlled rate Was on Coumadin INR is 2.9 at presentation which is reversed with intravenous vitamin K and also Kcentra following intracranial hemorrhage that was noted in the ER Holding anticoagulation in this setting Other significant medical conditions remain stable CKD stage III hyperlipidemia on statin Rx Prediabetes, hemoglobin A1c of 5.04 May 2022 Left breast cancer status post surgery, radiation, tamoxifen Rx, in remission Past tobacco abuse DVT prophylaxis SCDs CODE STATUS DNR/DNI Discussed in detail with the son Gil Ludwig on the phone and at bedside on 03/23 Admission and Anticipated Discharge Date Admission Date: March 17, 2023 Subjective Notified by nursing that pt's HR was dropping to the 20s and that overnight son had refused atropine. Discussion with son Gil Ludwig on the phone and at the bedside that he does not want further atropine administrations (had been given yesterday). States that it is her time to go. States that he has notified family and that they would be around soon. During examination of pt, pt yelled "leave me alone". Discussion of comfort measures with son, he would like to proceed. Review of Systems Review of Systems: Unobtainable due to cognitive status Physical Exam Physical Exam: General: Resting comfortably in bed, no acute distress. Skin: No noted rashes or bruises Psych:could not be determined HEENT: NC/AT CV: RRR Resp: no increased effort of breathing. Abdomen:Soft Results & Data Results & Data Vital Signs (Past 12 Hours) Vital Signs Temp Pulse Pulse Resp BP Pulse Ox O2 Del Method 03/23/23 04:01 36.5 C 51 L 17 95/47 L 90 Room Air 03/22/23 23:58 36.6 C 77 19 121/57 L 95 Room Air 03/22/23 22:26 75
[2023-03-23] MEDS: DONEPEZIL HCL 10 MG TAB PO SCH (22:20)
[2023-03-23] MEDS: SIMVASTATIN 40 MG TAB PO SCH (22:20)
--- NOTE | 2023-03-24 10:28 | Hospitalist Progress Note ---
Date of Service March 24, 2023 Assessment & Plan (1) Comfort measures only status: Plan: Discussion with son Gil Ludwig at about 7:30AM on 03/23/2023. Would no longer like atropine administered for HR in the 20s/significant bradycardia. States it is her time to go and he has contacted other family members-family members to come in from [place]. Agreeable to comfort measures- palliative care consult placed. Awaiting palliative recs/assistance. (2) Intracranial hemorrhage: Plan: Admitted with increasing confusion and also noted to have more weakness invol ving right side She has been having problem with ambulation for more than a month Noted to have left parietotemporal hemorrhage on admission Case discussed [place]. [place]za [place] [facility] [place]. He concurs with the plan but would not recommend additional steroid Rx for vasogenic edema after initial dose given at the ER. Discussed in detail by previous provider with the sons and they wanted observation at that time in this hospital They are against any surgical procedure. Repeat CT scan of the head x2 following the initial one did not show any increasing hemorrhage or any edema and or midline shift Bradycardia arrhythmia with decreased respiration Having frequent pauses and bradycardia Previously treated with a dose of atropine, family currently declining further treatment Condition remains critical and that was conveyed to the son by the previous provider Son aware that the condition may get worse anytime but so far remains critical but stable 03/23- Discussion with son Gil Ludwig at about 7:30AM on 03/23/2023. Would no longer like atropine administered for HR in the 20s. States it is her time to go and he has contacted other family members. Agreeable to comfort measures- orders placed as well as palliative care consult. (3) S/P cholecystectomy: (4) Acute UTI (urinary tract infection): Plan: Has been having UTI as an outpatient and on Macrobid UA was suggestive of infection-culture grew GBS Treated with IV Rocephin for 5 days, has been discontinued. (5) Hypertension: Plan: Currently hypotensive Hold home lisinopril (6) Dementia: Plan: Has significant dementia per family Has been having acute delirium with the stroke and possible complicated by UTI Delirium precautions. Frequent reorientation, avoid sedating medications (7) Atrial fibrillation: Plan: History of atrial fibrillation with controlled rate Was on Coumadin INR is 2.9 at presentation which is reversed with intravenous vitamin K and also Kcentra following intracranial hemorrhage that was noted in the ER Holding anticoagulation in this setting Other significant medical conditions remain stable CKD stage III hyperlipidemia on statin Rx Prediabetes, hemoglobin A1c of 5.04 May 2022 Left breast cancer status post surgery, radiation, tamoxifen Rx, in remission Past tobacco abuse CODE STATUS: DNR/DNI Dispo: Comfort measures, awaiting palliative recs Admission and Anticipated Discharge Date Admission Date: March 17, 2023 Subjective Pt seen this AM, sitting up in bed. Son at bedside. Pt awake, communicative. Son denied acute concerns. Review of Systems Review of Systems: Unobtainable due to cognitive status Physical Exam Physical Exam: General: Resting comfortably in bed, no acute distress. Skin: No noted rashes or bruises Psych:could not be determined HEENT: NC/AT Resp: no increased effort of breathing. Results & Data Results & Data Vital Signs (Past 12 Hours) Vital Signs Temp Pulse Resp BP Pulse Ox O2 Del Method 03/24/23 09:32 36.9 C 85 19 125/84 93 Room Air
[2023-03-24] MEDS: DONEPEZIL HCL 10 MG TAB PO SCH (20:03)
[2023-03-24] MEDS: SIMVASTATIN 40 MG TAB PO SCH (20:03)
--- NOTE | 2023-03-25 12:19 | Hospitalist Progress Note ---
Date of Service March 25, 2023 Assessment & Plan (1) Comfort measures only status: Plan: Discussion with son Gil Ludwig at about 7:30AM on 03/23/2023. Would no longer like atropine administered for HR in the 20s/significant bradycardia. States it is her time to go and he has contacted other family members-family members to come in from [place]. Agreeable to comfort measures- palliative care consult placed. Awaiting palliative recs/assistance. Appreciate palliative care input and recommendation Plan to discharge the patient home with home air export logistics manager is working on it (2) Intracranial hemorrhage: Plan: Admitted with increasing confusion and also noted to have more weakness involving right side She has been having problem with ambulation for more than a month Noted to have left parietotemporal hemorrhage on admission Case discussed with Dr. Meza of [facility]. He concurs with the plan but would not recommend additional steroid Rx for vasogenic edema after initial dose given at the ER. Discussed in detail by previous provider with the sons and they wanted observation at that time in this hospital They are against any surgical procedure. Repeat CT scan of the head x2 following the initial one did not show any increasing hemorrhage or any edema and or midline shift Remains stable without any acute symptoms from the hemorrhage Bradycardia arrhythmia with decreased respiration Having frequent pauses and bradycardia Previously treated with a dose of atropine, family currently declining further treatment Condition remains critical and that was conveyed to the son by the previous provider Son aware that the condition may get worse anytime but so far remains critical but stable 03/23- Discussion with son Gil Ludwig at about 7:30AM on 03/23/2023. Would no longer like atropine administered for HR in the 20s. States it is her time to go and he has contacted other family members. Agreeable to comfort measures- orders placed as well as palliative care consult. Heart rate remains stable without any evidence of heart block or significant pauses as before (3) S/P cholecystectomy: (4) Acute UTI (urinary tract infection): Plan: Has been having UTI as an outpatient and on Macrobid UA was suggestive of infection-culture grew GBS Treated with IV Rocephin for 5 days, has been discontinued. (5) Hypertension: Plan: Currently hypotensive Hold home lisinopril (6) Dementia: Plan: Has significant dementia per family Has been having acute delirium with the stroke and possible complicated by UTI Delirium precautions. Frequent reorientation, avoid sedating medications (7) Atrial fibrillation: Plan: History of atrial fibrillation with controlled rate Was on Coumadin INR is 2.9 at presentation which is reversed with intravenous vitamin K and also Kcentra following intracranial hemorrhage that was noted in the ER Holding anticoagulation in this setting Other significant medical conditions remain stable CKD stage III hyperlipidemia on statin Rx Prediabetes, hemoglobin A1c of 5.04 May 2022 Left breast cancer status post surgery, radiation, tamoxifen Rx, in remission Past tobacco abuse CODE STATUS: DNR/DNI Dispo: Comfort measures, awaiting palliative recs We will discharge with home hospice Admission and Anticipated Discharge Date Admission Date: March 17, 2023 Subjective 03/18/2023 The patient was seen and examined in ICU in presence of the son She remains confused and has been eating and drinking reasonably She is aggressive at times and requiring one-to-one sitter No nausea no vomiting and denies any other significant symptoms 03/19/2023 The patient was seen and examined in ICU She remains stable, communicative with confusion and occasional agitation Does not have any other distress at rest 03/20/2023 The patient was seen and examined in ICU in presence of the son Her condition has been deteriorating since last night with decreased responsive ness and also noted to have frequent pauses and bradycardia arrhythmia 03/21/2023 The patient was seen and examined in ICU in presence of the son She has had an MRI yesterday that did not show slight increase in edema of the intracranial hemorrhage Surprisingly she did not have any more pauses in the monitor and the heart rate is maintained around more than 60s with blood pressure on the upper side and 148/79 She has been more alert and awake but remains confused from her baseline dementia 03/22/2023 The patient was seen and examined in telemetry unit in presence of the son She has been stable but was noted to have occasional bradycardia arrhythmia this morning with heart rate going down below 35 She did not have any new symptoms related She has been eating and drinking reasonably and remains confused at her baseline 03/25/2023 The patient was seen and examined in medical floor in presence of the son She remains totally confused Not in any distress Review of Systems Review of Systems: Could not be reliably obtained secondary to dementia Physical Exam Physical Exam: Lying in bed without any acute distress but remains very confused and seems to be at her baseline Constitutional: well developed, well nourished, + ill appearing and + obese Eyes: PERRL, conjunctivae normal, anicteric sclerae ENMT: external ear and nose normal, oropharynx normal Neck: trachea midline, no thyromegaly Respiratory: no respiratory distress Auscultation: lungs clear to auscultation bilaterally Cardiovascular: Rate/Rhythm: regular rate and regular rhythm; not tachycardic Heart Sounds: normal S1, normal S2 and + murmur Extremities: + edema (Trace edema bilaterally) Gastrointestinal (Abdomen): Inspection/Auscultation: normal bowel sounds; abdomen not distended Percussion/Palpation: abdomen soft; abdomen nontender Neurologic: moves all extremities (Except diminished movement of the right lower extremity) Psychiatric: Insight: + poor insight Lymphatic: no cervical or axillary lymphadenopathy Results & Data Results & Data Medications Administered Current Inpatient Medications Acetaminophen (Acetaminophen 325 Mg Tab) 650 mg PO TID [facility] Stop: 04/24/23 13:59 Last Admin: 03/25/23 13:30 Dose: Not Given Donepezil HCl (Donepezil Hcl 10 Mg Tab) 10 mg PO HS [facility] Stop: 04/16/23 20:59 Last Admin: 03/24/23 20:03 Dose: 10 mg Promethazine HCl 6.25 mg/ (Sodium Chloride) 50.25 mls @ 201 mls/hr IV Q6H PRN PRN Reason: Nausea And Vomiting Stop: 04/16/23 02:22 Lorazepam (Lorazepam 2 Mg/1 Ml Vial) 0.5 mg IV Q4H PRN PRN Reason: Anxiety/Agitation Stop: 04/22/23 07:53 Lorazepam (Lorazepam 0.5 Mg Tab) 0.5 mg PO Q4H PRN PRN Reason: Anxiety/Agitation Stop: 04/22/23 07:53 Nitroglycerin (Nitroglycerin 2% 1 Inch/Pkt Pkt) 0.5 inch EXT Q6H PRN PRN Reason: Blood Pressure - High.SBP>140 Stop: 04/17/23 08:18 Olanzapine (Olanzapine 10 Mg/2.1 Ml Sdv) 2.5 mg IM Q4H PRN PRN Reason: Agitation Stop: 04/16/23 01:45 Last Admin: 03/21/23 22:20 Dose: 2.5 mg Ondansetron HCl (Ondansetron Inj 2 Mg/Ml 2 Ml Vial) 4 mg IV Q4H PRN PRN Reason: Nausea &/or Vomiting Stop: 04/22/23 07:53 Ondansetron HCl (Ondansetron 4 Mg Od Tab) 4 mg SL Q4H PRN PRN Reason: Nausea &/or Vomiting Stop: 04/22/23 07:53
--- NOTE | 2023-03-25 12:38 | Palliative Care Consultation ---
Date of Consultation March 25, 2023 Assessment & Plan (1) Acute confusion: Acute on chronic confusion with ICH This is likely exacerbated by her baseline dementia and hospitalization She is able to be redirected. She is on aricept routinely. It's not clear that this is still providing benefit for her in the moderate to severe stage of dementia Lorazepam and olanzapine are available as needed for severe anxiety or agitation (2) Pain: With prolonged immobility Would consider routine tylenol prior to opioid use to minimize mental status change Pain may also be contributing to her agitation (3) Palliative care encounter: I met with her son, Gil at bedside. He tells me that family wants to take her home. She lives with him, his brother and a SO. They are working and would need to recruit additional family members or friends to fill in gaps of her care. She is bedbound and requires 24/7 care at this time. He confirms that comfort is the primary goal for her care. He does not feel that they would want to put her through additional treatments or interventions as he has seen a decline in her baseline mental status prior to admission. We discussed hospice care and he tells me that they had hospice at home when his father in 2017. He is familiar with hospice care and philosophy. We discussed services covered by hospice at what to expect. He would like to use [facility] who cared for his father. Discussed with case management. History of Present Illness Reason for Consultation: goals of care Requesting Physician: Dr. Lopez Attending Physician: Sienna Shipley MD History of Present Illness 87 yo lady with dementia and afib on coumadin. She presented with worsening confusion and agitation at home. She had been checked for UTI as an outpatient. Culture was negative after presumptive treatment with macrobid. She was found to have a left occipitoparietal hemorrhage with mild vasogenic edema which has been stable since admission. She did not have a witnessed fall or injury. Her family opted for comfort focused approach to care. She is awake and alert though very confused. She is not oriented to place or time. She has had some agitation at times. She denies pain, dyspnea or nausea, though her son tells me that she has complained of right arm pain at times. Per nursing, she has some discomfort with routine care. She is hungry and asking for food. Allergies Allergy/AdvReac Type Severity Reaction Status Date / Time aspirin Allergy Mild sick per pt Verified 03/18/23 10:16 Home Medications Medication Instructions Recorded Confirmed Type DONEPEZIL HYDROCHLORIDE (ARICEPT) 10 mg PO HS #0 tabs 11/01/16 History Hydrochlorothiazide 25 mg PO DAILY ##0 11/01/16 History LISINOPRIL (ZESTRIL) 2.5 mg PO DAILY ##0 11/01/16 History Potassium Chloride (Micro-K Ext 10 meq PO BID #0 caps 11/01/16 History Rel) Simvastatin (Zocor) 40 mg PO QPM #0 tabs 11/01/16 History WARFARIN SODIUM (COUMADIN) 2.5 mg PO 3XWK #0 tabs 11/01/16 History WARFARIN SODIUM (COUMADIN) 5 mg PO 4XWK #0 tabs 11/01/16 History donepezil 10 mg tablet 10 mg PO HS 03/17/23 03/17/23 History lisinopril 2.5 mg tablet 2.5 mg PO DAILY 03/17/23 03/17/23 History potassium chloride 10 mEq 10 meq PO BID 03/17/23 03/17/23 History capsule,extended release simvastatin 40 mg tablet 40 mg PO HS 03/17/23 03/17/23 History warfarin 2.5 mg tablet 2.5 mg PO DAILY 03/17/23 03/17/23 History Patient History Social History Smoking Status: Never smoker Hx Alcohol Use: No Hx Substance Use: No Preferred Language: Nepali Communication Ability: Impaired Accounts Receivable Administrator Required: No Beliefs That Will Affect Care: None Current Living Situation: Family Current Living Situation Comment: Lives with son Other Information That Helps Us Care for You: No Feels Safe at Home: Yes Safety Concerns: Feels Safe At This Time Assistive Devices: Walker and Other Review of Systems Review of Systems: ESAS Pain 0/3 by report Dyspnea 0/3 Nausea 0/3 Drowsiness 1/3 Physical Exam Constitutional: no acute distress Respiratory: normal respiratory effort; no labored breathing Musculoskeletal: Extremities: + muscle atrophy Neurologic: Speech / Cognition: + abnormal cognition PG Care Time/CCT Total # of Minutes Spent Total Time Spent: 60 Total Time Spent with Patient: Total time spent is greater than 50% in coordination of care (as documented) at patient's floor/unit and/or counseling patient: symptom management, goals of care, hospice, family education and support, coordination of care Coding Level of Care Code 35933 INT INP/OBS CARE MIN Diagnoses Acute confusion R41.0 Pain R52 Palliative care encounter Z51.5
[2023-03-25] MEDS: ACETAMINOPHEN 325 MG TAB PO SCH ×2 (13:30→21:42)
[2023-03-25] MEDS: DONEPEZIL HCL 10 MG TAB PO SCH (21:42)
[2023-03-26] MEDS: ACETAMINOPHEN 325 MG TAB PO SCH ×3 (08:53→20:05)
--- NOTE | 2023-03-26 12:44 | Hospitalist Progress Note ---
Date of Service March 26, 2023 Assessment & Plan (1) Comfort measures only status: Plan: Discussion with son Gil Ludwig at about 7:30AM on 03/23/2023. Would no longer like atropine administered for HR in the 20s/significant bradycardia. States it is her time to go and he has contacted other family members-family members to come in from [place]. Agreeable to comfort measures- palliative care consult placed. Awaiting palliative recs/assistance.Appreciate palliative care input and recommendation Plan to discharge the patient home with home staffing program manager is working on it Remains medically stable but critical Awaiting hospice set up at home prior to discharge probably this afternoon (2) Intracranial hemorrhage: Plan: Admitted with increasing confusion and also noted to have more weakness involving right side She has been having problem with ambulation for more than a month Noted to have left parietotemporal hemorrhage on admission Case discussed with Dr. Meza of [facility]. He concurs with the plan but would not recommend additional steroid Rx for vasogenic edema after initial dose given at the ER. Discussed in detail by previous provider with the sons and they wanted observation at that time in this hospital They are against any surgical procedure. Repeat CT scan of the head x2 following the initial one did not show any increasing hemorrhage or any edema and or midline shift Remains stable without any acute symptoms from the hemorrhage Complains to have some blurry of vision without any other significant symptom Cross visual examination is unremarkable Bradycardia arrhythmia with decreased respiration Having frequent pauses and bradycardia Previously treated with a dose of atropine, family currently declining further treatment Condition remains critical and that was conveyed to the son by the previous provider Son aware that the condition may get worse anytime but so far remains critical but stable 03/23- Discussion with son Gil Ludwig at about 7:30AM on 03/23/2023. Would no longer like atropine administered for HR in the 20s. States it is her time to go and he has contacted other family members. Agreeable to comfort measures- orders placed as well as palliative care consult. Heart rate remains stable without any evidence of heart block or significant pauses as before No more bradycardia (3) S/P cholecystectomy: (4) Acute UTI (urinary tract infection): Plan: Has been having UTI as an outpatient and on Macrobid UA was suggestive of infection-culture grew GBS Treated with IV Rocephin for 5 days, has been discontinued. (5) Hypertension: Plan: Currently hypotensive Hold home lisinopril (6) Dementia: Plan: Has significant dementia per family Has been having acute delirium with the stroke and possible complicated by UTI Delirium precautions. Frequent reorientation, avoid sedating medications (7) Atrial fibrillation: Plan: History of atrial fibrillation with controlled rate Was on Coumadin INR is 2.9 at presentation which is reversed with intravenous vitamin K and also Kcentra following intracranial hemorrhage that was noted in the ER Holding anticoagulation in this setting Other significant medical conditions remain stable CKD stage III hyperlipidemia on statin Rx Prediabetes, hemoglobin A1c of 5.04 May 2022 Left breast cancer status post surgery, radiation, tamoxifen Rx, in remission Past tobacco abuse CODE STATUS: DNR/DNI Dispo: Comfort measures, awaiting palliative recs We will discharge with home hospice Medications will be continued except warfarin and this was explained to the son Admission and Anticipated Discharge Date Admission Date: March 17, 2023 Subjective 03/18/2023 The patient was seen and examined in ICU in presence of the son She remains confused and has been eating and drinking reasonably She is aggressive at times and requiring one-to-one sitter No nausea no vomiting and denies any other significant symptoms 03/19/2023 The patient was seen and examined in ICU She remains stable, communicative with confusion and occasional agitation Does not have any other distress at rest 03/20/2023 The patient was seen and examined in ICU in presence of the son Her condition has been deteriorating since last night with decreased responsiveness and also noted to have frequent pauses and bradycardia arrhythmia 03/21/2023 The patient was seen and examined in ICU in presence of the son She has had an MRI yesterday that did not show slight increase in edema of the intracranial hemorrhage Surprisingly she did not have any more pauses in the monitor and the heart rate is maintained around more than 60s with blood pressure on the upper side and 148/79 She has been more alert and awake but remains confused from her baseline dementia 03/22/2023 The patient was seen and examined in telemetry unit in presence of the son She has been stable but was noted to have occasional bradycardia arrhythmia this morning with heart rate going down below 35 She did not have any new symptoms related She has been eating and drinking reasonably and remains confused at her baseline 03/25/2023 The patient was seen and examined in medical floor in presence of the son She remains totally confused Not in any distress 03/26/2023 The patient was seen and examined in medical floor in presence of the sons She has been stable and complains to have some nonspecific symptoms like blurry vision She has been otherwise stable and wants to go home Remains confused Review of Systems Review of Systems: Could not be reliably obtained secondary to dementia Physical Exam Physical Exam: Lying in bed without any acute distress but remains very confused and seems to be at her baseline Constitutional: well developed, well nourished, + ill appearing and + obese Eyes: PERRL, conjunctivae normal, anicteric sclerae ENMT: external ear and nose normal, oropharynx normal Neck: trachea midline, no thyromegaly Respiratory: no respiratory distress Auscultation: lungs clear to auscultation bilaterally Cardiovascular: Rate/Rhythm: regular rate and regular rhythm; not tachycardic Heart Sounds: normal S1, normal S2 and + murmur Extremities: + edema (Trace edema bilaterally) Gastrointestinal (Abdomen): Inspection/Auscultation: normal bowel sounds; abdomen not distended Percussion/Palpation: abdomen soft; abdomen nontender Musculoskeletal: No acute arthritis involving any of the joint Neurologic: moves all extremities (Except diminished movement of the right lower extremity) Psychiatric: Insight: + poor insight Lymphatic: no cervical or axillary lymphadenopathy Results & Data Results & Data Medications Administered Current Inpatient Medications Acetaminophen (Acetaminophen 325 Mg Tab) 650 mg PO TID [facility] Stop: 04/24/23 13:59 Last Admin: 03/26/23 08:53 Dose: 650 mg Donepezil HCl (Donepezil Hcl 10 Mg Tab) 10 mg PO HS [facility] Stop: 04/16/23 20:59 Last Admin: 03/25/23 21:42 Dose: 10 mg Promethazine HCl 6.25 mg/ (Sodium Chloride) 50.25 mls @ 201 mls/hr IV Q6H PRN PRN Reason: Nausea And Vomiting Stop: 04/16/23 02:22 Lorazepam (Lorazepam 2 Mg/1 Ml Vial) 0.5 mg IV Q4H PRN PRN Reason: Anxiety/Agitation Stop: 04/22/23 07:53 Lorazepam (Lorazepam 0.5 Mg Tab) 0.5 mg PO Q4H PRN PRN Reason: Anxiety/Agitation Stop: 04/22/23 07:53 Nitroglycerin (Nitroglycerin 2% 1 Inch/Pkt Pkt) 0.5 inch EXT Q6H PRN PRN Reason: Blood Pressure - High.SBP>140 Stop: 04/17/23 08:18 Olanzapine (Olanzapine 10 Mg/2.1 Ml Sdv) 2.5 mg IM Q4H PRN PRN Reason: Agitation Stop: 04/16/23 01:45 Last Admin: 03/21/23 22:20 Dose: 2.5 mg Ondansetron HCl (Ondansetron Inj 2 Mg/Ml 2 Ml Vial) 4 mg IV Q4H PRN PRN Reason: Nausea &/or Vomiting Stop: 04/22/23 07:53 Ondansetron HCl (Ondansetron 4 Mg Od Tab) 4 mg SL Q4H PRN PRN Reason: Nausea &/or Vomiting Stop: 04/22/23 07:53
[2023-03-26] MEDS: DONEPEZIL HCL 10 MG TAB PO SCH (20:05)
[2023-03-27] MEDS: ACETAMINOPHEN 325 MG TAB PO SCH ×3 (09:09→20:33)
[2023-03-27] MEDS: DONEPEZIL HCL 10 MG TAB PO SCH (20:33)
[2023-03-28] MEDS: ACETAMINOPHEN 325 MG TAB PO SCH ×2 (08:05→14:48)
--- NOTE | 2023-03-28 17:40 | Discharge Summary ---
Discharge Summary Date of Service March 28, 2023 Admission HPI Per Admitting Provider Patient has prior [facility] MR#[id number]. History obtained from patient, family, and records. History limited from patient secondary to dementia. Medical history significant for A-fib on Coumadin, hypertension, hyperlipidemia, CRI (baseline creatinine 1.5), prediabetes, left breast cancer status post surgery, radiation, tamoxifen Rx, dementia, past tobacco abuse. Last admission 2003 under Orthopedics service for bilateral total knee arthroplasties. Patient seen at PCPs office last week for bladder troubles. Increased disorientation at home. Having trouble seeing as per documentation. UA showed WBC esterase. Patient started on Macrodantin. Outpatient urine CS eventually without growth. Patient brought to ER for worsening agitation. Patient also complaining of abdominal pain as per son. Patient does not know why she is in the hospital. Denies headache, chest pain, SOB, abdominal pain, hematuria complaints. No recollection of recent trauma except for patient sliding from her bed last month as per son. IV ceftriaxone administered at the ER. Medical History as above Surgical History : Knee surgery, cataract surgery, dental surgery, cholecystectomy, shoulder surgery, partial mastectomy left Family History : COPD, DM, dementia Personal/Social history : Past tobacco abuse, occasional EtOH intake, lives with son, retired from [employer] work Principal Dx & Hospital Course #1 = Principal Diagnosis (1) Comfort measures only status: Discussion with son Gil Ludwig at about 7:30AM on 03/23/2023. Would no longer like atropine administered for HR in the 20s/significant bradycardia. States it is her time to go and he has contacted other family members-family members to come in from [place]. Agreeable to comfort measures- palliative care consult placed. 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 Meza of [facility] [place] [facility]. He concurs with the plan but would not recommend additional steroid Rx for vasogenic edema after initial dose given at the ER. Discussed in detail by previous provider with the sons and they wanted observation at that time in this hospital They are against any surgical procedure. Repeat CT scan of the head x2 following the initial one did not show any increasing hemorrhage or any edema and or midline shift Remains stable without any acute symptoms from the hemorrhage Complains to have some blurry of vision without any other significant symptom Cross visual examination is unremarkable Bradycardia arrhythmia with decreased respiration Having frequent pauses and bradycardia Previously treated with a dose of atropine, family currently declining further treatment Condition remains critical and that was conveyed to the son by the previous provider Son aware that the condition may get worse anytime but so far remains critical but stable 03/23- Discussion with son Gil Ludwig at about 7:30AM on 03/23/2023. Would no longer like atropine administered for HR in the 20s. States it is her time to go and he has contacted other family members. Agreeable to comfort measures- orders placed as well as palliative care consult. Heart rate remains stable without any evidence of heart block or significant pauses as before No more bradycardia (3) S/P cholecystectomy: (4) Acute UTI (urinary tract infection): Has been having UTI as an outpatient and on Macrobid UA was suggestive of infection-culture grew GBS Treated with IV Rocephin for 5 days, has been discontinued. (5) Hypertension: Currently hypotensive Hold home lisinopril (6) Dementia: Has significant dementia per family Has been having acute delirium with the stroke and possible complicated by UTI Delirium precautions. Frequent reorientation, avoid sedating medications (7) Atrial fibrillation: History of atrial fibrillation with controlled rate Was on Coumadin INR is 2.9 at presentation which is reversed with intravenous vitamin K and also Kcentra following intracranial hemorrhage that was noted in the ER Holding anticoagulation in this setting Other significant medical conditions remain stable CKD stage III hyperlipidemia on statin Rx Prediabetes, hemoglobin A1c of 5.04 May 2022 Left breast cancer status post surgery, radiation, tamoxifen Rx, in remission Past tobacco abuse CODE STATUS: DNR/DNI Dispo: Comfort measures, awaiting palliative recs We will discharge with home hospice Medications will be continued except warfarin and this was explained to the son Updated Medication List Medication Instructions Recorded Confirmed Type DONEPEZIL HYDROCHLORIDE (ARICEPT) 10 mg PO HS #0 tabs 11/01/16 History LISINOPRIL (ZESTRIL) 2.5 mg PO DAILY ##0 11/01/16 History donepezil 10 mg tablet 10 mg PO HS 03/17/23 03/17/23 History lisinopril 2.5 mg tablet 2.5 mg PO DAILY 03/17/23 03/17/23 History acetaminophen 325 mg tablet 650 mg (2 x 325 mg) PO TID 30 days 03/27/23 Rx #180 tabs lorazepam 0.5 mg tablet 0.5 mg PO Q4H PRN 03/27/23 Rx ANXIETY/AGITATION #14 tabs Hospital Stay Data Consultations 03/17/23 01:12 ED Decision to Admit Stat 03/17/23 04:22 Consult Neurology Routine 03/23/23 07:54 Consult Palliative Care Routine Diagnostic Imagining Performed 03/17/23 01:45 CT Abd and Pelvis [CT abd pelvis wo con] Stat CT head/brain wo con Stat 03/17/23 12:00 CT head/brain wo con Urgent 03/18/23 07:56 CT Brain [CT head/brain wo con] Routine 03/20/23 13:24 MRI Brain [MR brain wo/w con] Routine Pending Results Patient Have Any Pending Studies at Discharge: No Discharge Instructions Given to Patient (Per Discharging Provider) HOSPICE CARE SERVICE WILL CONTINUE TO PROVIDE CARE AT HOME.
--- NOTE | 2023-03-28 17:40 | Hospitalist Progress Note ---
Date of Service March 28, 2023 Assessment & Plan Admission and Anticipated Discharge Date Admission Date: March 17, 2023 Results & Data Results & Data Vital Signs (Past 12 Hours) Vital Signs Temp Pulse Pulse Resp BP Pulse Ox O2 Del Method 03/28/23 10:12 36.9 C 78 87 18 108/72 92 03/28/23 08:00 Room Air
== END 2023-03-28 16:14 | disposition hospice, home (50) | DRG 64 ==
LOC: EDBD → ED 21:51 → MERGE 03-17 02:21 → 1E 03-17 02:21 → SUATTDRO 03-17 02:21 → 1E 03-17 05:23 → 2S 03-21 17:49 → 3N 03-23 13:49